=== PATIENT | female | born 1975 | race African-American/Black ===

== ENCOUNTER 2022-11-15 15:38 | Inpatient (IN) | payer BC, OTHER ==
--- OUTSIDE RECORDS SUMMARY | 2022-11-15 15:41 | XMS REPORT | Continuity of Care Document ---
:1975 Author Organization [facility] t Address [address] [facility] [address] [place] [address] Care Team Providers Name Role Phone None, None Primary Care Physician RADIOLOGY Attending Clinician Unavailable Radiology Attending Clinician Unavailable CROW GRIMES Attending Clinician Unavailable CROW GRIMES Attending Clinician Unavailable Tim Carvajal MD Attending Clinician LAB47 Attending Clinician Unavailable MIKA FIGUEROA Attending Clinician Unavailable COVID-PFIZER RANGEL BLANCO Attending Clinician Unavailable Doctor Unassigned, [place] Attending Clinician Unavailable SASKIA HALL Attending Clinician Unavailable [id number] Attending Clinician Unavailable DUYEN WILSON Attending Clinician Unavailable Lakesha Castillo Attending Clinician LAKESHA HERNANDEZ Attending Clinician Unavailable Saskia Hall PA-C Attending Clinician Nurse, Adc Pob Immunization Attending Clinician Unavailable Gopi Goddard DO Attending Clinician GOPI GODDARD Attending Clinician Unavailable DANIELLE GALICIA Attending Clinician Unavailable SAMUEL RICKETTS Admitting Clinician Unavailable SASKIA HALL Admitting Clinician Unavailable Payers Payer Name Policy Type Policy Number Effective Date Expiration Date S [facility] [id number] CHANDLER [id number] 2019 ESSENTIALS/BLUE 00:00:00 ESSENTIALS ACCESS HMO BLUE ESSENTIALS [id number] 2019 HMO 00:00:00 TRS BLUE 9 [id number] 2021 ESSENTIALS 00:00:00 CAPITATED PRIMARY Blue Cross Blue C1 [id number] [facility] Problems Condition Condition Condition Status Onset Resolution Last Treating Co mments Source Name Details Category Date Date Treatment Clinician Date Pelvic Pelvic Disease Active Univers pain pain - ity of 00:00: [place] 00 Medical Branch Hemorrhagi Hemorrhagi Disease Active U nivers c cystitis c cystitis 10-05 it y of 00:00: [place] 00 Medical Branch Neck Neck Disease Active Univers swelling swelling 10-05 ity of 00:00: [place] 00 Medical Branch Acute Acute Disease Active Univers vaginitis vaginitis 09-14 ity of 00:00: [place] 00 Medical Branch Yeast Yeast Disease Active Univers infection infection 09-14 ity of 00:00: [place] 00 Medical Branch Encounter Encounter Disease Active Uni vers to to 07-25 [place] of establish establish [place] [facility] [place] Anxiety Anxiety Disease Active Univers and and 07-25 [place] of depression [place] Need for Need for Disease Active Unive rs hepatitis hepatitis 07-25 ity of C C 00:00: [place] screening screening 00 [facility] valarie test test Branch 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 07-25 it y of 00:00: [place] 00 Medical Branch Rash and Rash and Disease Active Unive rs other other 07-25 ity of nonspecifi nonspecifi [place] skin c skin 00 Medical eruption eruption Branch No known No known Disease [place] active active Health problems problems Allergies, Adverse Reactions, Alerts Allergy Allergy Status Severity Reaction(s) Onset Inactive Treating Comm ents Source Name Type Date Date Clinician SULFA Drug Active Swelling 2020-03 Univers (SULFONA Class 0-05 ity of MIDE 00:00: [place] ANTIBIOT 00 Medical ICS) Branch Sulfa Propensi Active Swelling 2020-03 Karla Drugs ty to 0-05 Seybold adverse 00:00: - reaction 00 Externa s l Sulfamet Drug Active Hives 2009- Univers hoxazole Allergy 3-25 ity of -Trimeth 00:00: [place] oprim 00 Medical Branch MORPHINE DRUG Active High ITCHING 2009- Univers INGREDI 3-25 ity of 00:00: [place] 00 Medical Branch SULFAMET DRUG Active Med Hives 2009- Univers HOXAZOLE 3-25 ity of -TRIMETH 00:00: [place] OPRIM 00 Medical Branch Morphine Drug Active Itching 2009-0 Karla Allergy 3-25 Seybold 00:00: - 00 Externa l Sulfamet Propensi Active Hives 2009- Karla hoxazole ty to 3-25 Seybold W-Trimet adverse 00:00: - hoprim reaction 00 Externa s l Bactrim Drug Active Hives Karla Allergy 3-25 Seybold 00:00: - 00 Externa l Social History Social Habit Start Date Stop Date Quantity Comments Source Gender identity Universit y [facility] Sexual orientation Univer sity [facility] History of Tobacco [facility] - Use [facility] Exposure to 2022-04-10 2022-04-20 Not sure [facility] SARS-CoV-2 (event) 00:00:00 13:50:00 Tobacco use and 2022-04-20 2022-04-20 Smokeless [place] [facility] exposure 00:00:00 00:00:00 tobacco non-user Alcohol intake 2022-01-24 2022-01-24 Current Karla Sey bold - 00:00:00 00:00:00 non-drinker of External alcohol (finding) History of Social 2021-01-11 2021-01-11 Univers ity of function 00:00:00 00:00:00 [facility] Sex Ass[birth year] At [birth year] [place] [facility] 00:00:00 00:00:00 Smoking Status Start Date Stop Date Source Never smoked tobacco [facility] Medications Ordered Filled Start Stop Current Ordering Indication Dosage Frequency Signature Comments Components Source Medication Medication Date Date Medication? Clinician (SIG) Name Name warfarin 4 Yes TAKE 2 Unive rs mg tablet 1-31 TABLETS BY ity of 00:00: MOUTH ONCE [place] 00 DAILY Medical (PENDING Branch INR RESULTS) No known No No known UT medications 04-20 medication He alth 15:50: s 54 No known No No known [place] medications 04-20 medication He alth 15:50: s 54 Warfarin 2021-03- No 4mg Take 4 mg Naresh sey Sodium 03-26 by mouth 2 Seybol d (Coumadin) 16:55: 00:00 times - 4 MG oral 34 :00 daily Externa Tablet l Warfarin 2021-03 Yes 1 tablet Kelse y Sodium 1-01 daily on Seybold (COUMADIN) 16:20: Sun, , - 7.5 MG OR Sun, Sat [employer] [facility] Reception[facility] a TABS l Warfarin 2021-03 Yes 1 TABLET Kelse y Sodium 1- DAILY on Seybold (COUMADIN) 16:20: Sun, and - 10 MG OR Sun Externa TABS l Warfarin 2021-03 Yes [id number] 5mg Take 5 mg Karla (COUMADIN) 03-26 by mouth Seybo ld 5 MG oral 16:20: daily - Tablet 31 Takes on Externa and l only WARFARIN 2021-03 Yes [id number] 9mg Take 9 mg Karla SODIUM OR 03-26 by mouth Seybol d 16:20: On Sunday, - Sunday, Externa Sunday, l Sun and Sunday Warfarin 2021-03- No 8mg Take 2 Karla Sodium 03-26 11-16 tablets (8 Seybol d (Coumadin) 00:00: 05:59 mg total) - 4 MG oral 00 :00 by mouth [facility] a Tablet daily for l 14 days cephALEXin 2021- No [id number] 500mg Take 1 Univers (KEFLEX) 10-05 capsule by ity of 500 mg 00:00: 04:59 mouth in [place] capsule 00 :00 the Medical morning Branch and 1 capsule in the evening. Do all this for 7 days. cephALEXin 2021- No [id number] 500mg Take 1 Univers (KEFLEX) 10-05 capsule by ity of 500 mg 00:00: 04:59 mouth in [place] capsule 00 :00 the Medical morning Branch and 1 capsule in the evening. Do all this for 7 days. cephALEXin 2- No [id number] 500mg Take 1 Univers (KEFLEX) 7 07-21 capsule by ity of 500 mg 00:00: 04:59 mouth in [place] capsule 00 :00 the Medical morning Branch and 1 capsule in the evening. Do all this for 7 days. Phentermine 2021-0 Yes [id number] 1{capsu Take 1 Karla HCl 15 MG 6-20 le} capsule by Seyb old oral 00:00: mouth 2 - Capsule 00 times Externa daily l FLUoxetine 2021-0 Yes 20mg Take 20 mg U nivers 20 mg 4-17 by mouth ity of capsule 00:00: daily. [place] [facility] FLUoxetine 2021-0 Yes 20mg Take 20 mg U nivers 20 mg 4-17 by mouth ity of capsule 00:00: daily. [place] [facility] Branch FLUoxetine 2021-0 Yes 20mg Take 20 mg U nivers 20 mg 4-17 by mouth ity of capsule 00:00: daily. [place] [facility] FLUoxetine 2021-0 Yes 20mg Take 20 mg U nivers 20 mg 4-17 by mouth ity of capsule 00:00: daily. [place] [facility] Branch FLUoxetine 2021-0 Yes 20mg Take 20 mg U nivers 20 mg 4-17 by mouth ity of capsule 00:00: daily. [address] Branch FLUoxetine 2021-0 Yes 20mg Take 20 mg U nivers 20 mg 4-17 by mouth ity of capsule 00:00: daily. [address] FLUoxetine 2021-0 Yes 20mg Take 20 mg U nivers 20 mg 4-17 by mouth ity of capsule 00:00: daily. [address] Fluoxetine 2021-0 Yes [id number] 20mg Take 20 mg Karla HCl 20 MG 4-17 by mouth Seybol d oral 00:00: daily - Capsule 00 Externa l phentermine 2-0 Yes 15mg Take 15 mg Univers 15 mg 3-22 by mouth 2 ity of capsule 00:00: (two) [place] 00 times Medical daily. Branch phentermine 2022-0 Yes 15mg Take 15 mg Univers 15 mg 3-22 by mouth 2 ity of capsule 00:00: (two) [place] 00 times Medical daily. Branch phentermine 2022-0 Yes 15mg Take 15 mg Univers 15 mg 3-22 by mouth 2 ity of capsule 00:00: (two) [place] 00 times Medical daily. Branch phentermine 2022-0 Yes 15mg Take 15 mg Univers 15 mg 3-22 by mouth 2 ity of capsule 00:00: (two) [place] 00 times Medical daily. Branch phentermine 2022-0 Yes 15mg Take 15 mg Univers 15 mg 3-22 by mouth 2 ity of capsule 00:00: (two) [place] 00 times Medical daily. Branch phentermine 2022-0 Yes 15mg Take 15 mg Univers 15 mg 3-22 by mouth 2 ity of capsule 00:00: (two) [place] 00 times Medical daily. Branch phentermine 2022-0 Yes 15mg Take 15 mg Univers 15 mg 3-22 by mouth 2 ity of capsule 00:00: (two) [place] 00 times Medical daily. Branch warfarin 4 2020-0 Yes TAKE 1 Unive rs mg tablet 8-16 TABLET BY ity o f 00:00: MOUTH ONCE 00 DAILY Medical DIRECTED Branch warfarin 4 2020-0 Yes TAKE 1 Unive rs mg tablet 8-16 TABLET BY ity o f 00:00: MOUTH ONCE DAILY Medical DIRECTED Branch warfarin 4 2020-0 Yes TAKE 1 Unive rs mg tablet 8-16 TABLET BY ity o f 00:00: MOUTH ONCE 00 DAILY Medical DIRECTED Branch warfarin 4 2020-0 Yes TAKE 1 Unive rs mg tablet 8-16 TABLET BY ity o f 00:00: MOUTH ONCE DAILY Medical DIRECTED Branch warfarin 5 1-0 Yes 5mg Take 5 mg Un clarke mg tablet 8-10 by mouth. ity o f 00:00: Medical Branch warfarin 5 1-0 Yes 5mg Take 5 mg Un clarke mg tablet 8-10 by mouth. ity o f 00:00: Medical Branch warfarin 5 1-0 Yes 5mg Take 5 mg Un clarke mg tablet 8-10 by mouth. ity o f 00:00: Medical Branch warfarin 5 1-0 Yes 5mg Take 5 mg Un clarke mg tablet 8-10 by mouth. ity o f 00:00: Medical Branch warfarin 5 1-0 Yes 5mg Take 5 mg Un clarke mg tablet 8-10 by mouth. ity o f 00:00: [place] 00 Medical Branch warfarin 5 2021-0 Yes 5mg Take 5 mg Un clarke mg tablet 8-10 by mouth. ity o f 00:00: [place] 00 Medical Branch levoFLOXaci levoFLOXaci 2020-2020- No 1{table QD levoFLOXac n 750 MG n 750 MG 09-06 t} in 750 MG 00:00: 00:00 00 :00 Warfarin 2009- Yes 2 TABLET Kelse y Sodium 10 1-11 AT BEDTIME Seyb old MG OR TABS 00:00: EVERY DAY - 00 Externa l Coumadin Coumadin No Coumadin Immunizations Ordered Filled Immunization Date Status Comments [facility] e Immunization Name Name COVID-19 Bivalent 2022-01-24 Completed Karla Reyes - Booster vaccine 00:00:00 External PFIZER 12+ SARS-COV-2 COVID-19 2021-02-02 Completed Unive rsity of PFIZER VACCINE 00:00:00 [facility] SARS-COV-2 COVID-19 2021-02-02 Completed Unive rsity of PFIZER VACCINE 00:00:00 [facility] SARS-COV-2 COVID-19 2021-02-02 Completed Unive rsity of PFIZER VACCINE 00:00:00 [facility] SARS-COV-2 COVID-19 2021-02-02 Completed Unive rsity of PFIZER VACCINE 00:00:00 [facility] SARS-COV-2 COVID-19 2021-02-02 Completed Unive rsity of PFIZER VACCINE 00:00:00 [facility] SARS-COV-2 COVID-19 2021-02-02 Completed Unive rsity of PFIZER VACCINE 00:00:00 [facility] SARS-COV-2 COVID-19 2021-02-02 Completed Unive rsity of PFIZER VACCINE 00:00:00 [facility] SARS-COV-2 COVID-19 2020 Completed Unive rsity of PFIZER VACCINE 00:00:00 [facility] SARS-COV-2 COVID-19 2020 Completed Unive rsity of PFIZER VACCINE 00:00:00 [facility] SARS-COV-2 COVID-19 2020 Completed Unive rsity of PFIZER VACCINE 00:00:00 [facility] SARS-COV-2 COVID-19 2020 Completed Unive rsity of PFIZER VACCINE 00:00:00 [facility] SARS-COV-2 COVID-19 2020 Completed Unive rsity of PFIZER VACCINE 00:00:00 [facility] SARS-COV-2 COVID-19 2020 Completed Unive rsity of PFIZER VACCINE 00:00:00 [facility] SARS-COV-2 COVID-19 2020 Completed Unive rsity of PFIZER VACCINE 00:00:00 [facility] SARS-COV-2 COVID-19 2020-07-10 Completed Unive rsity of PFIZER VACCINE 00:00:00 [facility] SARS-COV-2 COVID-19 2020-07-10 Completed Unive rsity of PFIZER VACCINE 00:00:00 [facility] SARS-COV-2 COVID-19 2020-07-10 Completed Unive rsity of PFIZER VACCINE 00:00:00 [facility] SARS-COV-2 COVID-19 2020-07-10 Completed Unive rsity of PFIZER VACCINE 00:00:00 [facility] SARS-COV-2 COVID-19 2020-07-10 Completed Unive rsity of PFIZER VACCINE 00:00:00 [facility] SARS-COV-2 COVID-19 2020-07-10 Completed Unive rsity of PFIZER VACCINE 00:00:00 [facility] SARS-COV-2 COVID-19 2020-07-10 Completed Unive rsity of PFIZER VACCINE 00:00:00 [facility] Vital Signs Vital Name Observation Time Observation Value Comments Source Systolic blood 2022-04-20 21:23:00 118 mm[Hg] [facility] pressure Diastolic blood 2022-04-20 21:23:00 78 mm[Hg] [facility] pressure Heart rate 2022-04-20 21:23:00 65 /min [facility] Body temperature 2022-04-20 21:23:00 36.22 Suzanna [facility] Body height 2022-04-20 21:23:00 154.9 cm [facility] Body weight 2022-04-20 21:23:00 92.987 kg [facility] BMI 2022-04-20 21:23:00 38.73 kg/m2 [facility] Systolic blood 2022-01-24 21:15:00 110 mm[Hg] Karla Seybold - pressure External Diastolic blood 2022-01-24 21:15:00 66 mm[Hg] Alex reddy Seybold - pressure External Heart rate 2022-01-24 21:15:00 80 /min Karla Kay eybold - External Body temperature 2022-01-24 21:15:00 36.67 Suzanna Bere ey Seybold - External Respiratory rate 2022-01-24 21:15:00 18 /min Bere ey Seybold - External Body height 2022-01-24 21:15:00 155.4 cm Karla S eybold - External Systolic blood 2021-10-05 20:40:00 145 mm[Hg] Univer sity of pressure [facility] Diastolic blood 2021-10-05 20:40:00 91 mm[Hg] Unive rsity of pressure [facility] Heart rate 2021-10-05 20:40:00 78 /[facility] 2021-10-05 20:40:[address] [facility] Oxygen saturation in 2021-10-05 20:40:00 97 /min [facility] Arterial blood by [facility] Pulse oximetry Branch height 2020-09-06 14:40:00 64 [in_i] [facility] weight 2020-09-06 14:40:00 210 [lb_av] [facility] temperature 2020-09-06 14:40:00 97.8 [degF] [facility] bmi 2020-09-06 14:40:00 36.04 kg/m2 [facility] oximetry 2020-09-06 14:40:00 97 % [facility] blood pressure 2020-09-06 14:40:00 138 mm[Hg] [facility] - systolic [facility] blood pressure 2020-09-06 14:40:00 78 mm[Hg] [facility] - diastolic [facility] Procedures Procedure Date / Time Performing Clinician Source Performed PHYSICIAN ORDERS 2022-01-18 05:01:00 Doctor Unassigned, [facility] [place] [facility] INSURANCE CORRESPONDENCE 2021-10-24 05:01:00 Doctor Unassigned, [facility] [place] [facility] CBC (INCLUDES DIFF/PLT)-Q 2021-10-07 21:01:00 Lakesha Hernandez [facility] POCT URINALYSIS 2021-10-05 00:00:00 Lakesha Hernandez [place] [facility] Encounters Start End Encounter Admission Attending Care Care Encounter Source Date/Time Date/Time Type Type Clinicians Facility Department ID 2022-05-01 Outpatient [facility] [id number] [place] 12:18:59 [id number] [facility] 2022-04-20 Outpatient [facility] [id number] [place] 14:10:45 [id number] [facility] 2022-04-12 Outpatient [facility] [id number] [place] 10:29:23 [id number] [facility] 2022-04-11 Outpatient [facility] [id number] [place] 13:44:17 [id number] [facility] 2022-04-07 Outpatient [facility] [id number] [place] 09:05:49 [id number] [facility] 2021-04-20 Outpatient [facility] ST[facility] [id number] Common 13:14:23 [id number] [facility] 2022-10-20 2022-10-20 Outpatient R RADIOLOGY [facility] [id number] [facility] 14:35:44 23:59:00 ity of [facility] 2022-10-20 2022-10-20 Hospital Radiology [facility] [id number] [facility] 14:35:44 23:59:00 Encounter [place] [id number] ity [facility] [id number] [facility] [id number] [place] [address] Branch 2022-06-06 2022-06-06 Outpatient R CROW GRIMES [facility] B [id number] Univers 08:00:00 08:00:00 CROW GRIMES itbarry of [facility] 2022-05-09 2022-05-09 Telephone AGUS Grimes [place] [id number] Univers 00:00:00 00:00:00 Crow [place] [id number] it y of W[place]'S [id number] [place] [id number] [facility] 134 Branch 2022-04-20 2022-04-20 Office ADAMA Carvajal [id number] [place] 14:30:00 15:31:18 Visit Tim [place] [id number] [facility] [id number] 2022-04-13 2022-04-13 Outpatient MARCUS [facility] [id number] [place] 16:30:00 16:30:00 [facility] 2022-01-24 2022-01-24 Outpatient LAB47 KARLA PEREZ [id number] Karla 17:20:00 17:20:00 Seybol wilfredo 2022-01-24 2022-01-24 Outpatient KARLA FIGUEROA [id number] Karla 16:15:00 16:15:00 MIKA Seemilieol wilfredo 2022-01-24 2022-01-24 Outpatient COVID-PFIZE KARLA PEREZ [id number] Karla 15:50:00 15:50:00 R Shemar BLANCO [place] 2022-01-18 2022-01-18 Outpatient R CROW GRIMES [facility] B [id number] Univers 09:00:00 09:00:00 CROW GRIMES [facility] 2022-01-18 2022-01-18 Outpatient R CROW GRIMES [facility] B [id number] Univers 09:00:00 09:00:00 CORW GRIMES [facility] 2022-01-18 2022-01-18 Orders Doctor HERNÁNDEZ [id number] Univers 00:00:00 00:00:00 Only Unassigned, IRENE [id number] ity of [place] [facility] 4.2.7.2.686 Jerry as [id number] [facility] 009 Branch 2022-01-12 2022-01-12 Outpatient Mike HALL [facility] [id number] Univers 08:00:00 08:00:00 SASKIA [facility] 2022-01-12 2022-01-12 Outpatient R ISABEL [facility] [id number] Univers 08:00:00 08:00:00 SASKIA brown [facility] 2021-11-01 2021-11-01 Outpatient KARLA PEREZ [id number] Karla 16:30:00 16:30:00 Seybol d 2021-10-24 2021-10-24 Orders Doctor HERNÁNDEZ [id number] Univers 00:00:00 00:00:00 Only Unassigned, IRENE [id number] ity of [place] [facility] 4.2.7.2.686 Jerry as [id number] [place] [address] Branch 2021-10-13 2021-10-13 Outpatient TFF48-[id number] KARLA PEREZ [id number] Karla 10:05:00 10:05:00 Seybol wilfredo 2021-10-13 2021-10-13 Office RANGEL WILSON 1.2.840.114 [id number] Karla 09:00:00 09:00:00 Visit DUYEN [id number] Amy 1.2.7.2.686 [id number] 2021-10-12 2021-10-12 Telephone [facility] 1.2.840.11 [id number] Univers 00:00:00 00:00:00 Crow [place] [id number] it y of WOMEN'S 4.2.7.2.686 [facility] [id number] [facility] 134 Branch 2021-10-07 2021-10-07 Orders BETTY Hernandez [id number] Univers 00:00:00 00:00:00 Only Lakesha BONILLA [id number] it y of HOSPITAL 4.2.7.2.686 Jerry as [id number] [facility] 009 Branch 2021-10-05 2021-10-05 Outpatient Mike HERNANDEZ [facility] [id number] Univers 15:30:00 16:58:23 LAKESHA brown [facility] 2021-10-05 2021-10-05 Office DavidRUST [id number] [id number] Univers 15:30:00 16:58:23 Visit Lakesha HUANG [id number] it [facility] [id number] Jerry as NANCY?BLEA [id number] [address] OFFICE [facility] 2021-10-05 2021-10-05 [facility] [id number] Univers 15:30:00 16:58:23 LAKESHA brown [facility] 2021-09-16 2021-09-16 Tele[facility] [id number] Univers 00:00:00 00:00:00 Lakesha HUANG [id number] it y [facility] [id number] Jerry as NANCY?BLEA [id number] [address] OFFICE [facility] 2021-09-14 2021-09-14 Office MilagrosniiRUST [id number] Univers 08:30:00 09:17:00 Visit Lakesha HUANG [id number] it y [facility] [id number] Jerry as NANCY?BLEA [id number] [address] OFFICE [facility] 2021-09-14 2021-09-14 [facility] [id number] Univers 08:30:00 09:17:00 LAKESHA brown [facility] 2021-09-14 2021-09-14 [facility] [id number] Univers 08:30:00 08:30:00 LAKESHA brown [facility] 2021-09-12 2021-09-12 Telephone Sydney [facility] 1.2.840.11 [id number] Univers 00:00:00 00:00:00 Crow [place] [id number] it [place].2.[place] [id number] [address] 2021-08-29 2021-08-29 Orders Doctor HERNÁNDEZ 1.2.840.114 [id number] Univers 00:00:00 00:00:00 Only Unassigned, IRENE [id number] ity of [place] [facility] 4.2.7.2.686 Jerry as [id number] [address] 2021-08-26 2021-08-26 Outpatient R DAVID [facility] [id number] Univers 08:30:00 08:30:00 LAKESHA stephanie [facility] 2021-08-08 2021-08-08 Outpatient R CROW GRIMES [facility] B [id number] Univers 16:00:00 17:02:07 CROW GRIMES [facility] 2021-08-08 2021-08-08 [facility] 1.2.840.114 [id number] [facility] 16:00:00 17:02:07 Visit Crow [place] [id number] it y [place] 4.2.7.2.686 [place] [id number] [address] 2021-08-06 2021-08-06 BETTY Michele 1.2.840.114 [id number] Univers 00:00:00 00:00:00 Only Lakesha BONILLA [id number] it y of HOSPITAL 4.2.7.2.686 Jerry as [id number] [address] 2021 2021 Telephone [facility] 1.2.840.11 [id number] Univers 00:00:00 00:00:00 Crow [place] [id number] it [place].2.[place] [id number] [address] 2021-08-01 2021-08-01 Case [facility] 1.2.840.114 [id number] Univers 00:00:00 00:00:00 Management Crow [place] [id number] ity of [place].2.[place] [id number] [address] 2021-07-29 2021-07-29 Harinder HERNÁNDEZ [id number] Univers 00:00:00 00:00:00 Only Unassigned, IRENE [id number] ity of [place] [facility] 4.2.7.2.686 Jerry as [id number] [facility] 009 Branch 2021-07-26 2021-07-26 Outpatient R SYDNEY CROW [facility] B [id number] Univers 16:00:00 17:03:38 CROW GRIMES [facility] 2021-07-26 2021-07-26 [facility] 1.2.840.114 [id number] Univers 16:00:00 17:03:38 Visit Crow [place] [id number] it y of [facility] 4.2.7.2.686 [facility] [id number] [facility] 134 Branch 2021-07-26 2021-07-26 Outpatient R CROW GRIMES [facility] B [id number] Univers 16:00:00 16:00:00 CROW GRIMES [facility] 2021-07-25 2021-07-25 Outpatient R DAVID [facility] [id number] Univers 15:00:00 15:45:40 LAKESHA [facility] 2021-07-25 2021-07-25 Office DavidRUST 1.2.840.114 [id number] Univers 15:00:00 15:45:40 Visit Lakesha HUANG [id number] it y of [place] 4.2.7.2.686 Jerry as NANCY?BLEA [id number] [address] MEDICAL OFFICE BUILDING 2021-06-10 2021-06-10 [place] Health [id number] Univers 12:43:02 23:59:00 Encounter Saskia CROWE [id number] [id number] [id number] [facility] [address] 2021-06-10 2021-06-10 [facility] [id number] Univers 12:43:02 23:59:00 SASKIA brown [facility] 2021-02-02 2021-02-02 Imm/Inj Nurse, Adc Pob Immunization [facility] [id number] Univers 16:02:09 16:02:17 Visit NitzaGopi AMRITA 350.1.13 .10 [id number] [phone] Nd dical [facility] [address] [facility] 2021-02-02 2021-02-02 Outpatient R NITZA [facility] [id number] Univers 15:50:00 15:50:00 GOPI brown [facility] 2021-01-11 2021-01-11 Outpatient Mike HALL [facility] [id number] Univers 09:30:00 10:12:02 SASKIA brown [facility] 2021-01-11 2021-01-11 Office Isabel [facility] [id number] Univers 09:28:01 10:12:02 Visit Saskia [place] [id number] [id number] [phone] Nd dical [address] 2020-12-28 2020-12-28 Office Isabel [facility] [id number] Univers 15:14:10 15:53:09 Visit Saskia [place] [id number] i [id number] [phone] Nd dical nal [address] [place] [address] 2020-12-28 2020-12-28 Outpatient R ISABEL [facility] [id number] Univers 15:00:00 15:00:00 SASKIA brown [facility] 2020-09-06 2020-09-06 [facility] [id number] Co mmon 00:00:00 00:00:00 VISIT [facility] PT LEVEL 3 - [facility] 2020 2020 Outpatient R GRAYSON [facility] [id number] Univers 08:20:00 16:04:44 DANIELLE [facility] 2020-07-10 2020-07-10 Outpatient Mike GALICIA, [facility] [id number] [facility] 08:00:00 08:10:11 [facility] Results Test Description Test Time Test Comments Results Result Comments Source CBC (INCLUDES DIFF/PLT)-Q 2021-10-08 03:00:00 Test Item Value Reference Range Interpretation Comme nts WHITE BLOOD CELL COUNT-Q See_Comment [A utomated message] The (test code = 6690-2) system which generated this result tra nsmitted reference range : 3.8 - 10.8 Thousand/u L. The reference range was not used to interpr et this result as denny l/abnormal. RED BLOOD CELL COUNT-Q See_Comment [Aut omated message] The (test code = 789-8) system w [facility] generated this result tra nsmitted reference range : 3.80 - 5.10 Million/uL . The reference range was not used to interpr et this result as denny l/abnormal. HEMOGLOBIN-Q (test code 11.9 g/dL 11.7-15.5 = 718-7) HEMATOCRIT-Q (test code 36.1 % 35-45 = 4544-3) MCV-Q (test code = 83.6 fL 80-100 787-2) MCH-Q (test code = 27.5 pg 27-33 785-6) MCHC-Q (test code = 33 g/dL 32-36 786-4) RDW-Q (test code = 15.7 % 11-15 H 788-0) PLATELET COUNT-Q (test See_Comment [Aut omated message] The code = 777-3) system which g enerated this result tra nsmitted reference range : 140 - 400 Thousand/uL. Th e reference range was not u sed to interpret this result as normal/abnormal . MPV-Q (test code = 9.2 fL 7.5-12.5 776-5) ABSOLUTE NEUTROPHILS-Q See_Comment [Aut omated message] The (test code = 751-8) system w [facility] generated this result tra nsmitted reference range : 1500 - 7800 cells/uL. The reference range was not used to interpr et this result as denny l/abnormal. ABSOLUTE LYMPHOCYTES-Q See_Comment [Aut omated message] The (test code = 731-0) system w Marco Vasco generated this result tra nsmitted reference range : 850 - 3900 cells/uL. The reference range was not used to interpr et this result as denny l/abnormal. ABSOLUTE MONOCYTES-Q See_Comment [Autom ated message] The (test code = 742-7) system w Marco Vasco generated this result tra nsmitted reference range : 200 - 950 cells/uL. The r eference range was not u sed to interpret this result as normal/abnormal . ABSOLUTE EOSINOPHILS-Q See_Comment [Aut omated message] The (test code = 711-2) system w Marco Vasco generated this result tra nsmitted reference range : 15 - 500 cells/uL. The r eference range was not u sed to interpret this result as normal/abnormal . ABSOLUTE BASOPHILS-Q See_Comment [Autom ated message] The (test code = 704-7) system w Marco Vasco generated this result tra nsmitted reference range : 0 - 200 cells/uL. The r eference range was not u sed to interpret this result as normal/abnormal . NEUTROPHILS-Q (test code 47.8 % = 770-8) LYMPHOCYTES-Q (test code 35.1 % = 736-9) MONOCYTES-Q (test code = 10.8 % 5905-5) EOSINOPHILS-Q (test code 4.9 % = 713-8) BASOPHILS-Q (test code = 1.4 % 706-2) GERMAN (test code = GERMAN) PERFORMED BY [email or web address] [place]; [address] [place] [id number]; YAZAN SANTIAGO MD Lab Interpretation (test Abnormal code = 34880-7) [facility] URINALYSIS W SPECIFIC [id number] 21:31:00 Test Item Value Reference Range Interpretation Comments POCT U SP GRAV (test 1.020 mg/dl See_Comment H [Autom ated code = 6605) message] The system which generated this result transmit leny reference range : <=1.025. The reference range was not used to interpret this result as normal/abnormal . POCT PH U (test code = 5 mg/dl 5-8 3254) POCT U LEUK EST (test + Negative - code = 3263) Negative POCT U NIT (test code neg Negative - = 3262) Negative POCT U PROT (test code neg Negative - = 3259) Negative POCT U GLU (test code neg Negative - = 3256) Negative POCT U KETONE (test neg Negative - code = 3258) Negative POCT U UROBILI (test neg 0.2-1 code = 3260) POCT U BILI (test code neg Negative - = 3261) Negative POCT U BLD (test code trace Negative - = 3257) Negative POCT U COLOR (test light yellow code = 3266) POCT U APPEAR (test hazy code = 3267) Lab Interpretation Abnormal (test code = 78968-9) [facility]
[2022-11-15] MEDS ORDERED: NA CHLORIDE 0.9% 2,000 ML ONE (16:50)
[2022-11-15 18:19] LABS: Absolute Lymphocytes (CBC) 2.3 K/uL (0.7-4.9); Lymphocytes % 29.9 % (15.3-44.8); MCV 78.9 fL (80-100); MPV 6.8 fL (7.6-11.3); Platelets 631 thou/uL (152-406); RBC Red Blood Cell Count 5.84 M/uL (3.86-4.86)
[2022-11-15 18:21] LABS: Protime INR 2.65
[2022-11-15 18:36] LABS: Albumin 4.1 g/dL (3.4-5.0); Bilirubin Total 0.7 mg/dL (0.2-1.0); Potassium 4.1 mEq/L (3.5-5.1); Protein, Total 9.1 g/dL (6.4-8.2)
[2022-11-15] MEDS ORDERED: FENTANYL CITR 100 MCG/2 ML ONE (18:58)
[2022-11-15] MEDS ORDERED: ONDANSETRON 4 MG/2 ML VIAL ONE (18:58)
--- NOTE | 2022-11-15 19:58 | RAD REPORT ---
EXAM DESCRIPTION: CT - Abdomen Pelvis Wo Contrast - 11/15/2022 7:38 pm CLINICAL HISTORY: Abdominal pain. ABD PAIN COMPARISON: Abdomen Pelvis W/Wo Contrast dated 08/29/2016 TECHNIQUE: CT imaging of the abdomen and pelvis was performed without contrast. Solid organ, bowel a nd vascular assessment is limited due to lack of IV and oral contrast. All CT scans are performed using dose optimization technique as appropriate and may include automated exposure control or mA/KV adjustment according to patient size. FINDINGS: The lower lung campbell are clear.Vena cava filter present. The liver, spleen, pancreas, adrenal glands and kidneys are within normal limits for a limited non-co ntrast examination. No bowel obstruction, free air, free fluid or abscess. Postsurgical changes involve the colon. Wall t hickening is present along the colon in the right flank with the numerous adjacent prominent lymph no tye. Nonvisualized appendix. Moderate L5-S1 degenerative changes. IMPRESSION: The colon in the right flank demonstrates wall thickening and surrounding lymph nodes. T his could indicate the nonspecific colitis. No pneumatosis coli seen. A limited non-contrast examination was performed as detailed.
--- NOTE | 2022-11-15 20:16 | EDPHYS ---
Physician Documentation [facility] Name: Nurys Vaughn Age: 47 yrs Sex: Female : 1975 Arrival Date: 11/15/2022 Time: 15:38 Bed 18 Private MD: KEV Physician Marquise Osman HPI: 11/15 16:25 This 47 yrs old Black Female presents to ER via Ambulatory with complaints of Doesn't sb4 Feel Right. 16:26 Onset: The symptoms/episode began/occurred 1 week(s) ago. Associated signs and sb4 symptoms: Pertinent positives: abdominal pain, diarrhea, patient is unable to take anything by mouth Pertinent negatives: chest pain, fever, shortness of breath. Modifying factors: The patient symptoms are alleviated by nothing, the patient symptoms are aggravated by drinking, eating food. The patient has experienced similar episodes in the past, multiple times. The patient has not recently seen a physician. patient with history of UC s/p colectomy and ileoanal anastomosis 20 years ago presents with complaints of abdominal pain, weakness. states she gets flare ups like these and usually flagyl resolves it but it has not this time and she feels incredibly dehydrated. Historical: - Allergies: 15:52 Morphine; iw 15:52 Sulfa (Sulfonamide Antibiotics); iw - Immunization history:: Client reports receiving the 2nd dose of the Covid vaccine. - Social history:: Smoking status: Patient denies any tobacco usage or history of. ROS: 16:30 Constitutional: Negative for fever, chills, and weight loss. sb4 16:30 Abdomen/GI: Positive for abdominal pain, nausea, diarrhea. 16:30 Neuro: Positive for weakness. 16:30 All other systems are negative. Exam: 17:09 Head/Face: Normocephalic, atraumatic. Cardiovascular: Regular rate and rhythm with a sb4 normal S1 and S2. Respiratory: Lungs have equal breath sounds bilaterally, clear to auscultation and percussion. No rales, rhonchi or wheezes noted. No increased work of breathing, no retractions or nasal flaring. Abdomen/GI: Soft, non-tender, no distension. Skin: Warm, dry with normal turgor. Normal color with no rashes, no lesions, and no evidence of cellulitis. MS/ Extremity: Pulses equal, no cyanosis. Neurovascular intact. Full, normal range of motion. 17:09 Constitutional: The patient appears awake, lethargic, uncomfortable. 17:09 ENT: Mouth: Oral mucosa: dry. 20:17 ECG was reviewed by the Attending Physician. [facility] Vital Signs: 15:46 BP 85 / 57 RA; Pulse 116; Resp 18; Pulse Ox 98% on R/A; Weight 79.38 kg; Height 5 ft. 1 iw in. ; Pain 10/10; 15:59 BP 106 / 85 LA; Pulse 118; Resp 20; Pulse Ox 96% ; iw 17:00 BP 101 / 78; Pulse 113; Resp 18; Pulse Ox 95% on R/A; ph 18:00 BP 102 / 68; Pulse 112; Resp 20; Pulse Ox 96% on R/A; ph 19:45 BP 108 / 78; Pulse 113; Resp 18; Pulse Ox 97% on R/A; cm10 20:30 BP 109 / 77; Pulse 101; Resp 18; Pulse Ox 100% on R/A; cm10 21:00 Pulse 95; cm10 15:46 Body Mass Index 33.07 (79.38 kg, 154.94 cm) iw 15:46 Pain Scale: Adult iw MDM: 15:54 Patient medically screened. robi 17:10 Differential diagnosis: gastroenteritis, colitis, bowel obstruction, dehydration, bowel sb4 perforation, anastomosis complication, UC flare. 18:57 ED course: additional medical history- protein S deficiency and is on Coumadin, has INR sb4 checked every 2 weeks by physician in [place]. GI physician is at [facility] in the medical center. I discussed her lab findings with her- hyponatremia, acute kidney injury, elevated lactic acid, tachycardia, borderline hypotension- and she needs admission to the hospital. She is extremely hesitant despite lengthy discussion. Initially refused CT but now has agreed. She has agreed to admission for 1-2 days max. I gave her the option to be transferred to her medical team and she refused. She is still very lethargic, makes minimal eye contact, seems to be withholding information. 19:05 Data reviewed: vital signs, nurses notes, lab test result(s), EKG, I have discussed the sb4 patient's presentation/case with the attending Emergency Department Physician;. Transition of care: After a detail discussion of the patient's case, care is transferred to Marquise Osman MD. 20:08 Differential diagnosis: Nonspecific abd pain, gastritis, pancreatitis, viral robi gastroenteritis, gastroenteritis, appendicitis, bowel obstruction, diverticulitis, gastritis, gastroesophageal reflux disease, GI Bleed, Hepatitis, Mesenteric ischemia or infarction, non-specific abd pain, pancreatitis, Peptic Ulcer Disease, Peritonitis, urinary tract infection. Consideration of Admission/Observation Patient was admitted/placed on observation. Escalation of care including admission/observation considered. I considered the following discharge prescriptions or medication management in the emergency department Medications were administered in the Emergency Department. See MAR. Test considered but Not performed: Ultrasound NO ABD USG. ED course: ULCERATIVE COLITIS. 11/15 16:08 Order name: Blood Culture Adult (2) [facility] 11/15 16:08 Order name: CBC with Diff; Complete Time: 18:22 [facility] 11/15 16:08 Order name: CMP; Complete Time: 18:37 [facility] 11/15 16:08 Order name: Lactate w/ 2H reflex if indic.; Complete Time: 18:55 [facility] 11/15 16:08 Order name: Protime (+inr); Complete Time: 18:22 [facility] 11/15 16:08 Order name: Ptt, Activated; Complete Time: 18:22 [facility] 11/15 16:08 Order name: Urinalysis w/ reflexes; Complete Time: 08:08 [facility] 11/15 16:08 Order name: Lipase; Complete Time: 18:37 [facility] 11/15 16:08 Order name: Procalcitonin; Complete Time: 20:03 [facility] 11/15 19:08 Order name: Osmolality, Serum; Complete Time: 09:27 [facility] 11/15 19:08 Order name: Urine Osmolality; Complete Time: 08:08 [facility] 11/15 19:08 Order name: Urine Sodium Random; Complete Time: 08:08 [facility] 11/15 19:08 Order name: Urine Creatinine; Complete Time: 08:08 [facility] 11/15 19:08 Order name: Urine Potassium Random; Complete Time: 08:08 [facility] 11/15 21:48 Order name: Basic Metabolic Panel [facility] 11/15 21:48 Order name: Basic Metabolic Panel; Complete Time: 08:08 EDIL 11/15 21:48 Order name: Basic Metabolic Panel [facility] 11/15 21:48 Order name: Basic Metabolic Panel [facility] 11/15 21:48 Order name: CBC with Automated Diff EDMS 11/15 21:48 Order name: CBC with Automated Diff; Complete Time: 09:27 EDMS 11/15 21:48 Order name: CBC with Automated Diff EDMS 11/15 21:48 Order name: CBC with Automated Diff EDMS 11/15 21:48 Order name: Magnesium EDMS 11/15 21:48 Order name: Magnesium; Complete Time: 08:08 EDMS 11/15 21:48 Order name: Urinalysis w/ reflexes EDMS 11/15 21:49 Order name: Magnesium EDMS 11/15 21:49 Order name: Magnesium EDMS 11/15 22:43 Order name: Lactate Sepsis 2 HR Follow-up; Complete Time: 08:08 EDMS 11/15 18:38 Order name: CT Abd/Pelvis - Without Contrast; Complete Time: 20:03 sb4 11/15 16:08 Order name: EKG; Complete Time: 16:09 sb4 11/15 21:48 Order name: NPO EDMS 11/15 16:08 Order name: Accucheck; Complete Time: 16:20 sb4 11/15 16:08 Order name: Cardiac monitoring; Complete Time: 16:14 sb4 11/15 16:08 Order name: EKG - Nurse/Tech; Complete Time: 16:14 sb4 11/15 16:08 Order name: IV Saline Lock - Large Bore; Complete Time: 16:20 sb4 11/15 16:08 Order name: Labs collected and sent; Complete Time: 16:20 sb4 11/15 16:08 Order name: O2 Per Protocol; Complete Time: 16:20 sb4 11/15 16:08 Order name: O2 Sat Monitoring; Complete Time: 16:20 sb4 11/15 16:08 Order name: Vital Signs; Complete Time: 16:20 sb4 11/15 20:02 Order name: Misc. Order: 3 LITER TOTAL NS; Complete Time: 20:24 robi EC:16 Rate is 115 beats/min. Rhythm is regular, Sinus tachycardia. QRS [place] is Normal. WI sb4 interval is normal at 164 msec. QRS interval is normal at 70 msec. QT interval is normal at 320 msec. No Q waves. No ST changes noted. Clinical impression: Normal ECG. Interpreted by me. Reviewed by me. 20:17 Rate is 115 beats/min. Rhythm is regular. QRS [place] is Normal. WI interval is normal. robi QRS interval is normal. QT interval is normal. No Q waves. T waves are Normal. No ST changes noted. Clinical impression: Sinus tachycardia and No evidence of ischemia. Interpreted by me. Reviewed by me. Administered Medications: 17:50 Drug: NS 0.9% IV (30 ml/kg) 30 ml/kg Route: IV; Rate: bolus; Site: right upper arm; nj1 21:59 Follow up: Response: No adverse reaction; IV Status: Completed infusion; IV Intake: cm10 3000ml 18:45 Drug: fentaNYL (PF) IVP 25 mcg Route: IVP; Site: right wrist; ph 19:53 Follow up: Response: No adverse reaction cm10 18:45 Drug: Ondansetron IVP 4 mg Route: IVP; Site: right wrist; ph 19:53 Follow up: Response: No adverse reaction cm10 20:28 Not Given (Duplicate Order): metroNIDAZOLE PO 250 mg PO once robi 20:42 Drug: Ciprofloxacin IVPB 200 mg Volume: 100 ml; Route: IVPB; Infused Over: 60 mins; cm10 Site: right wrist; 21:58 Follow up: Response: No adverse reaction; IV Status: Completed infusion cm10 20:42 Drug: Famotidine IVP 20 mg Route: IVP; Site: right wrist; cm10 21:29 Follow up: Response: No adverse reaction cm10 20:42 Drug: MethylPrednisoLONE IVP 60 mg Route: IVP; Site: right wrist; cm10 21:29 Follow up: Response: No adverse reaction cm10 21:29 Drug: Ativan IVP 1 mg Route: IVP; Site: right wrist; cm10 21:59 Follow up: Response: No adverse reaction cm10 21:58 Drug: metroNIDAZOLE IVPB 500 mg Volume: 100 ml; Route: IVPB; Rate: 200 ml/hr; Infused cm10 Over: 30 mins; Site: right wrist; 23:23 Follow up: Response: No adverse reaction; IV Status: Completed infusion cm10 Disposition: 20:10 Co-signature as Attending Physician, Marquise Osman MD. robi Disposition Summary: 11/15/22 20:16 Hospitalization Ordered Hospitalization Status: Inpatient Admission robi Provider: Lito Richards cha Location: Telemetry/MedSurg (Inpatient) robi Condition: Fair robi Problem: new robi Symptoms: have improved robi Bed/Room Type: Standard [facility] Room Assignment: 415(11/15/22 23:14) eb1 Diagnosis - Nausea with vomiting, unspecified robi - Dehydration robi - Acute kidney failure, unspecified robi - Hypo-osmolality and hyponatremia robi - Other ulcerative colitis with unspecified complications robi Forms: - Medication Reconciliation Form robi - SBAR form robi - Leadership Thank You Letter [facility] Signatures: Dispatcher [employer] Marquise Steen MD MD cha Williams, Irene RN TIM Nicole Morales RN RN Daphnie Boyer RN RN eb1 Sandra Sinha PA-C PASasha sb4 Coby Rosenthal RN RN nj1 Irene Kamara RN RN cm10 Corrections: (The following items were deleted from the chart) 19:02 18:57 ED course: additional medical history- protein S deficiency and is on Coumadin, sb4 has INR checked every 2 weeks by physician in [place]. GI physician is at [facility] in the [facility] center. I discussed her lab findings with her- hyponatremia, acute kidney injury, elevated lactic acid- and she needs admission to the hospital. She is extremely hesitant despite lengthy discussion. Initially refused CT but now has agreed. She has agreed to admission for 1-2 days max. I gave her the option to be transferred to her medical team and she refused. She is still very lethargic, makes minimal eye contact, seems to be withholding information. sb4 22:27 21:48 Lactate w/ 2H reflex if indic. ordered. EDIL EDMS 23:14 20:16 robi eb1
--- NOTE | 2022-11-15 20:16 | ER ---
Nurse's Notes [facility] Name: Nurys Vaughn Age: 47 yrs Sex: Female : 1975 Arrival Date: 11/15/2022 Time: 15:38 Bed 18 Private MD: Diagnosis: Nausea with vomiting, unspecified;Dehydration;Acute kidney failure, unspecified;Hypo-osmolality and hyponatremia;Other ulcerative colitis with unspecified complications Presentation: 11/15 15:46 Chief complaint: Patient states: "I think im dehydrated" . I think my potassium is low, iw im cramping all over. Started feeling bad, cannot swallow my own spit. Have not been able to eat or drink anything. States she has been taking flagyl that normally makes her feel better but it is not this time. Had large colon removed in 2003. Coronavirus screen: Vaccine status: Patient reports receiving the 2nd dose of the covid vaccine. Ebola Screen: Patient denies travel to an Ebola-affected area in the 21 days before illness onset. Initial Sepsis Screen: Does the patient meet any 2 criteria? HR > 90 bpm. No. Patient's initial sepsis screen is negative. Does the patient have a suspected source of infection? No. Patient's initial sepsis screen is negative. Risk Assessment: Do you want to hurt yourself or someone else? Patient reports no desire to harm self or others. Onset of symptoms was November 08, 2022. 15:46 Method Of Arrival: Ambulatory iw 15:46 Acuity: RD 3 iw Historical: - Allergies: 15:52 Morphine; iw 15:52 Sulfa (Sulfonamide Antibiotics); iw - Immunization history:: Client reports receiving the 2nd dose of the Covid vaccine. - Social history:: Smoking status: Patient denies any tobacco usage or history of. Screenin:21 [facility] ED Fall Risk Assessment (Adult) History of falling in the last 3 months, ph including since admission No falls in past 3 months (0 pts) Confusion or Disorientation No (0 pts) Intoxicated or Sedated No (0 pts) Impaired Gait No (0 pts) Mobility Assist Device Used No (0 pt) Altered Elimination No (0 pt) Score/Fall Risk Level 0 - 2 = Low Risk Oriented to surroundings, Maintained a safe environment, Hourly rounding (assess needs \\T\\ fall precautionary measures) done. Abuse screen: Denies threats or abuse. Denies injuries from another. Nutritional screening: No deficits noted. Tuberculosis screening: No symptoms or risk factors identified. Assessment: 16:30 General: Appears in no apparent distress. uncomfortable, Behavior is cooperative, ph appropriate for age. Pain: Complains of pain in "all over". Neuro: Level of Consciousness is awake, alert, obeys commands, Oriented to person, place, time, situation. Cardiovascular: Capillary refill < 3 seconds in bilateral fingers Patient's skin is warm and dry. Respiratory: Airway is patent Respiratory effort is even, unlabored, Respiratory pattern is regular, symmetrical. GI: Reports intolerance of fluids, vomiting. Derm: Skin is pink, warm \\T\\ dry. Musculoskeletal: Circulation, motion, and sensation intact. Range of motion: intact in all extremities. 19:53 Reassessment: Patient is alert, oriented x 3, equal unlabored respirations, skin cm10 warm/dry/pink. Assumed care of patient at 1900. Pt states that she is feeling better. Pt noted to be spitting in vomit bag, no active vomiting noted. Updated pt on plan of care. No needs identified. Call light in reach. 21:30 Reassessment: Patient appears in no apparent distress at this time. No changes from cm10 previously documented assessment. Patient and/or family updated on plan of care and expected duration. Pain level reassessed. Patient is alert, oriented x 3, equal unlabored respirations, skin warm/dry/pink. 22:50 Reassessment: Pt complaining of nausea, provider Olivia made aware and verbal orders cm10 for Zofran 4mg IVP obtainted. 23:15 Reassessment: Pt continues to report nausea, provider made aware. Verbal order for cm10 Zofran 4mg IVP obtained. Vital Signs: 15:46 BP 85 / 57 RA; Pulse 116; Resp 18; Pulse Ox 98% on R/A; Weight 79.38 kg; Height 5 ft. 1 iw in. ; Pain 10/10; 15:59 BP 106 / 85 LA; Pulse 118; Resp 20; Pulse Ox 96% ; iw 17:00 BP 101 / 78; Pulse 113; Resp 18; Pulse Ox 95% on R/A; ph 18:00 BP 102 / 68; Pulse 112; Resp 20; Pulse Ox 96% on R/A; ph 19:45 BP 108 / 78; Pulse 113; Resp 18; Pulse Ox 97% on R/A; cm10 20:30 BP 109 / 77; Pulse 101; Resp 18; Pulse Ox 100% on R/A; cm10 21:00 Pulse 95; cm10 15:46 Body Mass Index 33.07 (79.38 kg, 154.94 cm) iw 15:46 Pain Scale: Adult iw ED Course: 15:40 Patient arrived in ED. im 15:41 Sandra Sinha PA-C is PHCP. sb4 15:41 Marquise Osman MD is Attending Physician. sb4 15:52 Triage completed. iw 15:53 Arm band placed on left wrist. iw 16:20 Nicole Morales, RN is Primary Nurse. ph 16:21 Patient has correct armband on for positive identification. Bed in low position. Call ph light in reach. Side rails up X 1. surveillance monitor on. Pulse ox on. NIBP on. 17:24 Missed attempt(s): 20 gauge Bleeding controlled, band aid applied, catheter tip intact. sm8 17:30 Missed attempt(s): 22 gauge in right antecubital area. Bleeding controlled, band aid iw applied, catheter tip intact. 17:50 Inserted saline lock: 20 gauge in right upper arm, using aseptic technique. ,using nj1 aseptic technique. Ultrasound guided. Catheter tip well visualized within vasculature during placement. Blood collected. 19:08 No provider procedures requiring assistance completed. ph 19:[address] cm10 19:40 CT Abd/Pelvis - Without Contrast In Process Unspecified. EDMS 20:10 Lito Richards is Hospitalizing Provider. robi 20:24 Inserted saline lock: 20 gauge in left forearm, using aseptic technique. cm10 21:35 Primary Nurse role handed off by Nicole Morales, RN wm 21:58 Irene Kamara, TIM is Primary Nurse. cm10 23:23 Patient admitted, IV remains in place. cm10 23:24 Provided Education on: N/A. cm10 Administered Medications: 17:50 Drug: NS 0.9% IV (30 ml/kg) 30 ml/kg Route: IV; Rate: bolus; Site: right upper arm; nj1 21:59 Follow up: Response: No adverse reaction; IV Status: Completed infusion; IV Intake: cm10 3000ml 18:45 Drug: fentaNYL (PF) IVP 25 mcg Route: IVP; Site: right wrist; ph 19:53 Follow up: Response: No adverse reaction cm10 18:45 Drug: Ondansetron IVP 4 mg Route: IVP; Site: right wrist; ph 19:53 Follow up: Response: No adverse reaction cm10 20:28 Not Given (Duplicate Order): metroNIDAZOLE PO 250 mg PO once robi 20:42 Drug: Ciprofloxacin IVPB 200 mg Volume: 100 ml; Route: IVPB; Infused Over: 60 mins; cm10 Site: right wrist; 21:58 Follow up: Response: No adverse reaction; IV Status: Completed infusion cm10 20:42 Drug: Famotidine IVP 20 mg Route: IVP; Site: right wrist; cm10 21:29 Follow up: Response: No adverse reaction cm10 20:42 Drug: MethylPrednisoLONE IVP 60 mg Route: IVP; Site: right wrist; cm10 21:29 Follow up: Response: No adverse reaction cm10 21:29 Drug: Ativan IVP 1 mg Route: IVP; Site: right wrist; cm10 21:59 Follow up: Response: No adverse reaction cm10 21:58 Drug: metroNIDAZOLE IVPB 500 mg Volume: 100 ml; Route: IVPB; Rate: 200 ml/hr; Infused cm10 Over: 30 mins; Site: right wrist; 23:23 Follow up: Response: No adverse reaction; IV Status: Completed infusion cm10 Medication: 16:21 VIS not applicable for this client. ph Intake: 21:59 IV: 3000ml; Total: 3000ml. cm10 Outcome: 20:16 Decision to Hospitalize by Provider. [facility] 23:23 Admitted to Med/surg accompanied by tech, via wheelchair, room 415, Report called to cmFaheem Washington RN 23:23 Condition: good 23:23 Instructed on the need for admit. 11/16 00:12 Patient left the ED. cm10 Signatures: Dispatcher [employer] EDMarquise Garcia MD MD cha Williams, Irene, RN RN iw Hall, Patricia, RN RN ph Marsh, Wendy wm Brown, Sophia, PA-C PA-Emeterio sb4 Coby Rosenthal RN RN nj1 Carolina Myers Clarissa, RN RN cm10 Mills, Scarlett 8 Corrections: (The following items were deleted from the chart) 11/15 16:00 15:46 BP 85 / 57; Pulse 116bpm; Resp 18bpm; Pulse Ox 98% RA; 79.38 kg; Height 5 ft. 1 iw in.; BMI: 33.0; Pain 10, Adult; iw
[2022-11-15] MEDS ORDERED: METRONIDAZOLE 500mg IVPB 500 MG/100 ML BAG IV ONE (20:40)
[2022-11-15] MEDS ORDERED: NA CHLORIDE 0.9% 1,000 ML ONE (20:40)
--- NOTE | 2022-11-15 21:34 | P.HP ---
Certification for Inpatient Patient admitted to: Inpatient With expected LOS: <2 Midnights Patient will require the following post-hospital care: None Practitioner: I am a practitioner with admitting privileges, knowledge of patient current condition, hospital course, and medical plan of care. Services: Services provided to patient in accordance with Admission requirements found in Title 42 Section 412.3 of the Code of Federal Regulations Patient History Date of Service: 11/16/22 Reason for admission: Dehydration History of Present Illness: 47-year-old -[place] Citizen female with a past medical history of ulcerative colitis, pulmonary embolus on warfarin presents to the emergency room with dehydration. 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 She reports a prior history of ulcerative colitis with colon resection with current J-pouch, she reports that she normally has 6-7 stools per day as baseline that are nonbloody. She reports mild nausea, difficulty tolerating p.o. intake. Worse over the last 2 days. Laboratory evaluation lactic two-point 3 repeat 1.0, WBCs normal at 7.8, no left shift, acute kidney injury BUN 37 creatinine 3.22, UA leukoesterase greater than 500, CT of the abdomen pelvis IMPRESSION: The colon in the right flank demonstrates wall thickening and surrounding lymph nodes. This could indicate the nonspecific colitis. No pneumatosis coli seen. Plan to admit for dehydration, acute kidney injury, acute cystitis, colitis Allergies morphine Allergy (Verified 12/31/12 07:32) Itching Sulfa (Sulfonamide Antibiotics) Allergy (Verified 12/31/12 07:29) UNK Home Medications: Warfarin Sodium [Coumadin*] 4 mg PO DAILY 11/16/22 - Past Medical/Surgical History -: ulcerative cholitis "states no longer has since large bowel removed -: removal of large bowel -: removal of pulmonary embolism open chest, -: appendectomy - Social History Alcohol use: No CD- Drugs: No Caffeine use: No Review of Systems 10-point ROS is otherwise unremarkable Physical Examination - Physical Exam General: Alert, In no apparent distress, Oriented x3 HEENT: Atraumatic, Normocephalic, PERRLA Neck: Supple, 2+ carotid pulse no bruit, JVD not distended Respiratory: Clear to auscultation bilaterally, Normal air movement Cardiovascular: No edema, Normal pulses, Other (Sinus tachycardia) Capillary refill: <2 Seconds Gastrointestinal: Normal bowel sounds, Soft and benign Musculoskeletal: No clubbing, No swelling - Studies Laboratory Data (last 24 hrs) 11/15/22 11/15/22 11/15/22 17:50 17:50 17:50 WBC 7.80 Hgb 15.7 H Hct 46.0 H Plt Count 631 H PT 29.2 H INR 2.65 APTT 44.0 H Sodium 125 L Potassium 4.1 BUN 37 H Creatinine 3.22 H Glucose 114 H Total Bilirubin 0.7 AST 27 ALT 28 Alkaline Phosphatase 95 Lipase 110 H Assessment and Plan - Plan Assessment plan Acute cystitis Colitis Leukocytosis Dehydration Acute kidney injury Lactic acidosis Anxiety History of a PE on chronic anticoagulation warfarin History of ulcerative colitis Acute cystitis Colitis Leukocytosis Lactic acidosis IV fluids, Flagyl, IV Cipro as needed antiemetics cultures, UA, trend lactic, trend WBCs WBCs normal at 7.8, no left shift, UA leukoesterase greater than 500 lactic 2.3, repeat lactic 1.0, CT of the abdomen pelvis IMPRESSION: The colon in the right flank demonstrates wall thickening and surrounding lymph nodes. This could indicate the nonspecific colitis. No pneumatosis coli seen. We recommended n.p.o. diet patient insisted on clear liquid diet Dehydration Acute kidney injury IV fluids, trend kidney function, avoid nephrotoxic medications acute kidney injury BUN 37 creatinine 3.22, Nephrology consult patient requested Dr. Mullins History of ulcerative colitis prior history of ulcerative colitis with colon resection with current J-pouch, she reports that she normally has 6-7 stools per day as baseline that are nonbloody. Patient refused to see Dr. Lacy in the a.m. for GI consult Anxiety As needed's analytics History of a PE on warfarin PT/INR in the a.m. Diet clear liquid Full code DVT heparin Discharge Plan: Home Plan to discharge in: 48 Hours - Advance Directives Does patient have a Living Will: No Does patient have a Durable POA for Healthcare: No - Code Status/Comfort Care Code Status: Full Code Physician Review: Patient Assessed, Agree with Above Assessment and Plan Critical Care: No
[2022-11-15] MEDS ORDERED: LORazepam 2 MG/ML VIAL ONE (21:35)
[2022-11-15] MEDS ORDERED: ALPRAZOLAM 0.25 MG TABLET PO PRN (21:47)
[2022-11-15] MEDS ORDERED: ONDANSETRON 4 MG/2 ML VIAL IV ONE ×2 (22:52→23:16)
[2022-11-15 23:03] LABS: Renal Epithelial <5 /HPF (None Seen); Specific Gravity 1.008 (1.005-1.030); Urine Bacteria <20 /HPF (<20); Urine Bilirubin NEGATIVE (Negative); Urine Blood Negative (Negative); Urine Clarity Extremely Turbid (Clear); Urine Color Light-Yellow (Yellow); Urine Glucose NEGATIVE (Negative); Urine Mucus Slight /HPF (None Seen); Urine Protein NEGATIVE (Negative); Urine RBC <5 /HPF (None Seen); Urine Urobilinogen Normal (Normal)
[2022-11-15 23:21] LABS: UR SODIUM < 15 mmol/L (27-287)
[2022-11-16] MEDS: NA CHLORIDE 0.9% 1,000 ML IV SCH ×3 (00:41→12:19)
[2022-11-16 01:09] VITALS: BMI 33.0
[2022-11-16] MEDS: METRONIDAZOLE 500mg IVPB 500 MG/100 ML BAG IV SCH ×3 (03:14→17:24)
[2022-11-16] MEDS ORDERED: LORazepam 2 MG/ML VIAL IV PRN (03:30)
[2022-11-16] MEDS ORDERED: ONDANSETRON 4 MG/2 ML VIAL IV PRN (05:00)
[2022-11-16 07:24] LABS: Absolute Lymphocytes (CBC) 0.9 K/uL (0.7-4.9); Hematocrit 36.5 % (36.0-45.0); Lymphocytes % 11.1 % (15.3-44.8); MCV 79.4 fL (80-100); MPV 6.7 fL (7.6-11.3); Platelets 458 thou/uL (152-406); Protime INR 2.85
[2022-11-16 07:36] LABS: Magnesium 2.2 mg/dL (1.6-2.4); Potassium 4.3 mEq/L (3.5-5.1)
[2022-11-16 08:44] LABS: Anisocytosis SLIGHT; Blood Morphology Comment NOTED (NOT SEEN); Platelet Estimate ADEQ; White Blood Cell Scan OK (OK)
[2022-11-16] MEDS ORDERED: HEPARIN 5000 UNIT/ML 1 ML VIAL SQ SCH (09:00)
--- NOTE | 2022-11-16 09:15 | P.CNS ---
Date of Consult: 11/16/22 Reason for Consult: BELLO Requesting Physician: megan ojeda Chief Complaint: Dehydration History of Present Illness: 47-year-old -[place] female with a past medical history of ulcerative colitis, pulmonary embolus on warfarin presents to the emergency room with dehydration. 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 She reports a prior history of ulcerative colitis with colon resection with current J-pouch, she reports that she normally has 6-7 stools per day as baseline that are nonbloody. She reports mild nausea, difficulty tolerating p.o. intake. Worse over the last 2 days. Laboratory evaluation lactic two-point 3 repeat 1.0, WBCs normal at 7.8, no left shift, acute kidney injury BUN 37 creatinine 3.22, UA leukoesterase greater than 500, CT of the abdomen pelvis IMPRESSION: The colon in the right flank demonstrates wall thickening and surrounding lymph nodes. This could indicate the nonspecific colitis. No pneumatosis coli seen. Plan to admit for dehydration, acute kidney injury, acute cystitis, colitis. She reports 7-8 days of poor intake due to a flare of her UC. Decreased urine output. No NSAIDs. No bladder emptying issues. She reports a history of recurrent UTIs. She was told by Dr. Warren in the past that she has a duplicated collecting system. She admits to a poor diet with sugary drinks. 16:25 This 47 yrs old Black Female presents to ER via Ambulatory with complaints of Doesn't sb4 Feel Right. 16:26 Onset: The symptoms/episode began/occurred 1 week(s) ago. Associated signs and sb4 symptoms: Pertinent positives: abdominal pain, diarrhea, patient is unable to take anything by mouth Pertinent negatives: chest pain, fever, shortness of breath. Modifying factors: The patient symptoms are alleviated by nothing, the patient symptoms are aggravated by drinking, eating food. The patient has experienced similar episodes in the past, multiple times. The patient has not recently seen a physician. patient with history of UC s/p colectomy and ileoanal anastomosis 20 years ago presents with complaints of abdominal pain, weakness. states she gets flare ups like these and usually flagyl resolves it but it has not this time and she feels incredibly dehydrated. Allergies morphine Allergy (Verified 12/31/12 07:32) Itching Sulfa (Sulfonamide Antibiotics) Allergy (Verified 12/31/12 07:29) UNK Home medications list reviewed: Yes Home Medications: Warfarin Sodium [Coumadin*] 4 mg PO DAILY 11/16/22 - Past Medical/Surgical History Diabetic: No -: Ulcerative Colitis sp proctocolectomy with J-pouch -: Hx BELLO (Dr. Mullins/ Dr. Solano) -: Hx PE on anticoagulation -: Proctocolectomy with J-Pouch -: removal of pulmonary embolism open chest, -: appendectomy - Social History Smoking Status: Never smoker Alcohol use: No CD- Drugs: No Caffeine use: No Place of Residence: Home Review of Systems 10-point ROS is otherwise unremarkable General: Weakness, Malaise Gastrointestinal: Abdominal Pain Physical Examination Temp Pulse Resp BP Pulse Ox 97.9 F 88 16 113/77 98 11/16/22 08:00 11/16/22 08:00 11/16/22 08:00 11/16/22 08:00 11/16/22 08:00 General: In no apparent distress, Oriented x3, Cooperative HEENT: Atraumatic Neck: Supple Respiratory: Clear to auscultation bilaterally, Normal air movement Cardiovascular: No edema, Regular rate/rhythm Gastrointestinal: Soft and benign, Non-distended Musculoskeletal: No clubbing, No contractures Integumentary: No rashes, No cyanosis Neurological: Normal speech Laboratory Data (last 24 hrs) 11/15/22 11/15/22 11/15/22 17:50 17:50 17:50 WBC 7.80 Hgb 15.7 H Hct 46.0 H Plt Count 631 H PT 29.2 H INR 2.65 APTT 44.0 H Sodium 125 L Potassium 4.1 BUN 37 H Creatinine 3.22 H Glucose 114 H Total Bilirubin 0.7 AST 27 ALT 28 Alkaline Phosphatase 95 Lipase 110 H Imagings Data: EXAM DESCRIPTION: CT - Abdomen Pelvis Wo Contrast - 11/15/2022 7:38 pm CLINICAL HISTORY: Abdominal pain. ABD PAIN COMPARISON: Abdomen Pelvis W/Wo Contrast dated 08/29/2016 TECHNIQUE: CT imaging of the abdomen and pelvis was performed without contrast. Solid organ, bowel and vascular assessment is limited due to lack of IV and oral contrast. All CT scans are performed using dose optimization technique as appropriate and may include automated exposure control or mA/KV adjustment according to patient size. FINDINGS: The lower lung campbell are clear.Vena cava filter present. The liver, spleen, pancreas, adrenal glands and kidneys are within normal limits for a limited non-contrast examination. No bowel obstruction, free air, free fluid or abscess. Postsurgical changes involve the colon. Wall thickening is present along the colon in the right flank with the numerous adjacent prominent lymph nodes. Nonvisualized appendix. Moderate L5-S1 degenerative changes. IMPRESSION: The colon in the right flank demonstrates wall thickening and surrounding lymph nodes. This could indicate the nonspecific colitis. No pneumatosis coli seen. A limited non-contrast examination was performed as detailed. Conclusions/Impression: Stage III BELLO likely due to hypovolemia CKD II? -No NSAIDs -Continue IVF with NS Hypovolemic Hyponatremia -Continue IVF with NS NAG Acidosis -Start oral bicarb Hypercalcemia likely due to hypovolemia Hypocalcemia -Continue IVF with NS -Start Ergo Microcytosis -Check iron status -Check B12 due to colectomy Hospitalist & ER notes reviewed Thank you kindly for the consultation
[2022-11-16] MEDS: SODIUM BICARB 325 MG TAB PO SCH ×4 (10:49→20:17)
[2022-11-16] MEDS ORDERED: DRISDOL (VITAMIN D=ERGOCALCIFEROL) 50000 UNIT CAP PO SCH (12:00)
--- NOTE | 2022-11-16 12:38 | EKG ---
Test Date: 2022-11-15 Test Time: 16:09:13 Jigman: MATTEO MEASUREMENT RESULTS: Intervals: Rate: 115 VA: 164 QRSD: 70 QT: 320 QTc: 442 [place]: P: 66 VA: 164 QRS: 57 T: -6 INTERPRETIVE STATEMENTS: Sinus tachycardia Nonspecific T wave abnormality Abnormal ECG Compared to ECG 10/02/2004 17:47:00 No significant changes Electronically Signed On 11-16-22 12:37:04 CDT by Sam Burdick
[2022-11-16] MEDS ORDERED: WARFARIN SODIUM 4 MG TAB PO SCH ×2 (17:00→18:37)
--- NOTE | 2022-11-16 18:45 | P.PN ---
Subjective Date of Service: 11/16/22 Chief Complaint: Dehydration Patient denies any complaint. She denies any nausea or vomiting. She denies any diarrhea. Physical Examination - Vital Signs Temperature: 97.9 F Blood Pressure: 103/55 Pulse: 84 Respirations: 16 Pulse Ox (%): 100 Assessment And Plan - Plan Physical Exam General: Alert, In no apparent distress, Oriented x3 Neck: Supple, JVD not distended Respiratory: Clear to auscultation bilaterally, Normal air movement Cardiovascular: No edema, Normal pulses, normal heart sounds, regular rate, normal rate. Gastrointestinal: Normal bowel sounds, Soft, nontender. Musculoskeletal: No clubbing, No swelling Assessment plan Colitis Leukocytosis Dehydration Acute kidney injury Lactic acidosis History of a PE on chronic anticoagulation warfarin History of ulcerative colitis Colitis-chronic Leukocytosis Lactic acidosis Continue IV hydration. Dehydration Acute kidney injury Prerenal failure Serum creatinine is improving. Nephrology Dr. Mullins input appreciated. Monitor renal function with hydration. History of ulcerative colitis prior history of ulcerative colitis with colon resection with current J-pouch, she reports that she normally has 6-7 stools per day as baseline that are nonbloody. History of a PE on warfarin Continue warfarin. Monitor PT/INR. Diet as tolerated. Full code Discharge Plan: Home Plan to discharge in: 24 Hours
[2022-11-16] MEDS ORDERED: CIPROFLOXACIN 400mg IV 400 MG/200 ML BAG IV SCH (21:00)
[2022-11-16] MEDS: CYANOCOBALAMIN 1000MCG/ML INJ SQ SCH (21:03)
[2022-11-17] MEDS: NA CHLORIDE 0.9% 1,000 ML IV SCH (00:34)
[2022-11-17] MEDS: METRONIDAZOLE 500mg IVPB 500 MG/100 ML BAG IV SCH ×2 (00:34→08:57)
[2022-11-17 03:15] LABS: Absolute Lymphocytes (CBC) 1.7 K/uL (0.7-4.9); Lymphocytes % 14.2 % (15.3-44.8); MCV 80.9 fL (80-100); MPV 6.9 fL (7.6-11.3); Platelets 463 thou/uL (152-406)
[2022-11-17 03:21] LABS: Phosphorus 2.3 mg/dL (2.5-4.9); Potassium 3.9 mEq/L (3.5-5.1); Uric Acid 7.9 mg/dL (2.6-6.0)
[2022-11-17 08:18] VITALS: TEMP 97.6; O2SAT 99
--- NOTE | 2022-11-17 08:49 | P.DS ---
Admission Date: 11/15/22 Discharge Date: 11/17/22 Disposition: ROUTINE DISCHARGE Discharge Condition: FAIR Reason for Admission: Dehydration Brief History of Present Illness: 47-year-old -[place] female with a past medical history of ulcerative colitis, pulmonary embolus on warfarin presents to the emergency room with a complaint of dehydration. She reported being out in the heat for 3 days 100+ degree weather. She reports a prior history of ulcerative colitis with colon resection with current J-pouch. She reported that she normally has 6-7 stools per day as baseline that are nonbloody. She reported mild nausea, difficulty tolerating p.o. intake. Laboratory evaluation showed lactic acid of 2.3, repeat 1.0, WBCs normal at 7.8, no left shift, acute kidney injury BUN 37 creatinine 3.22, UA leukoesterase greater than 500, CT of the abdomen pelvis showed colon in the right flank demonstrating wall thickening and surrounding lymph nodes which could indicate nonspecific colitis. No pneumatosis coli seen. Patient was hospitalized for further management of BELLO. Hospital Course: Diagnosis Colitis Leukocytosis Dehydration Acute kidney injury Lactic acidosis History of a PE on chronic anticoagulation warfarin History of ulcerative colitis Patient admitted to the medical floor and the following medical problems addressed: Colitis-chronic Leukocytosis Lactic acidosis Patient was treated with IV ciprofloxacin and Flagyl along with IV fluid. Diet was later advanced from clear liquid to solid diet which she tolerated. Dehydration Acute kidney injury Prerenal failure secondary to dehydration Serum creatinine significantly improved with IV hydration. Nephrology Dr. Mullins evaluated patient and assisted with management Patient informed to stay hydrated given her frequent BM. History of ulcerative colitis prior history of ulcerative colitis with colon resection with current J-pouch, she reports that she normally has 6-7 stools per day as baseline that are nonbloody. Stable. Vitamin B12 deficiency Likely secondary to decreased absorption as a result of small bowel resection. Patient started on subcutaneous vitamin B12 replacement. She is informed she will need to follow-up with her PCP to continue the vitamin B12 replacement. History of a PE on warfarin Continued warfarin. INR was therapeutic. Vital Signs/Physical Exam: Temp Pulse Resp BP Pulse Ox 97.6 F 70 16 83/45 L 99 11/17/22 08:00 11/17/22 08:00 11/17/22 08:00 11/17/22 08:00 11/17/22 08:00 General: Alert, In no apparent distress, Oriented x3 HEENT: Mucous membr. moist/pink Neck: JVD not distended Respiratory: Clear to auscultation bilaterally, Normal air movement Cardiovascular: No edema, Regular rate/rhythm, Normal S1 S2 Gastrointestinal: Normal bowel sounds, Soft and benign, Non-distended Musculoskeletal: No swelling Integumentary: No rashes Neurological: Normal strength at 5/5 x4 extr Laboratory Data at Discharge: WBC 11.80 thou/uL (4.3-10.9) H 11/17/22 02:32 Hgb 11.5 g/dL (12.0-15.0) L D 11/17/22 02:32 Hct 34.0 % (36.0-45.0) L 11/17/22 02:32 Plt Count 463 thou/uL (152-406) H 11/17/22 02:32 PT 31.4 SECONDS (9.5-12.5) H 11/16/22 06:56 INR 2.85 11/16/22 06:56 APTT 44.0 SECONDS (24.3-36.9) H 11/15/22 17:50 Sodium 136 mEq/L (136-145) D 11/17/22 02:32 Potassium 3.9 mEq/L (3.5-5.1) 11/17/22 02:32 BUN 20 mg/dL (7-18) H 11/17/22 02:32 Creatinine 1.64 mg/dL (0.55-1.02) H 11/17/22 02:32 Glucose 108 mg/dL (74-106) H 11/17/22 02:32 Uric Acid 7.9 mg/dL (2.6-6.0) H 11/17/22 02:32 Phosphorus 2.3 mg/dL (2.5-4.9) L 11/17/22 02:32 Magnesium 2.0 mg/dL (1.6-2.4) 11/17/22 02:32 Total Bilirubin 0.7 mg/dL (0.2-1.0) 11/15/22 17:50 AST 27 U/L (15-37) 11/15/22 17:50 ALT 28 U/L (13-56) 11/15/22 17:50 Alkaline Phosphatase 95 U/L (45-117) 11/15/22 17:50 Lipase 110 U/L (13-75) H 11/15/22 17:50 Home Medications: Warfarin Sodium [Coumadin*] 4 mg PO DAILY 11/16/22 Cyanocobalamin [Vitamin B-12*] 1,000 mcg SQ DAILY #0 vial 11/17/22 Vitamin D [Drisdol*] 50,000 unit PO Q7D #4 cap 11/17/22 New Medications: Vitamin D [Drisdol*] 50,000 unit PO Q7D #4 cap Followup: Amor Mullins DO [ACTIVE - CAN ADMIT] - 1 Week Time spent managing pt's care (in minutes): 34
[2022-11-17] MEDS: CYANOCOBALAMIN 1000MCG/ML INJ SQ SCH (09:00)
[2022-11-17] MEDS ORDERED: MULTIVITAMINS,THERAPEUT 1 TAB PO SCH (09:00)
[2022-11-17] MEDS: SODIUM BICARB 325 MG TAB PO SCH (09:00)
[2022-11-17 09:02] LABS: Specific Gravity 1.008 (1.005-1.030); Transitional Epithelial <5 /HPF (None Seen); Urine Bacteria <20 /HPF (<20); Urine Bilirubin NEGATIVE (Negative); Urine Blood Negative (Negative); Urine Clarity Extremely Turbid (Clear); Urine Color Light-Yellow (Yellow); Urine Glucose NEGATIVE (Negative); Urine Mucus Slight /HPF (None Seen); Urine Protein NEGATIVE (Negative); Urine RBC <5 /HPF (None Seen); Urine Urobilinogen Normal (Normal)
--- NOTE | 2022-11-17 10:39 | P.PN ---
(S) Pt reports improvement in GI symptoms, feels better, renal function improving, BP low this AM but denies orthostatic symptoms (O) Vitals reviewed in the EMR General: In no apparent distress, Oriented x3, Cooperative HEENT: Atraumatic, sclera anicteric Neck: Supple Respiratory: Clear to auscultation bilaterally, Normal air movement Cardiovascular: No edema, Regular rate/rhythm Gastrointestinal: Soft and benign, Non-distended Musculoskeletal: No contractures Integumentary: No rashes Neurological: Normal speech, awake, alert Imagings Data: EXAM DESCRIPTION: CT - Abdomen Pelvis Wo Contrast - 11/15/2022 7:38 pm CLINICAL HISTORY: Abdominal pain. ABD PAIN COMPARISON: Abdomen Pelvis W/Wo Contrast dated 08/29/2016 TECHNIQUE: CT imaging of the abdomen and pelvis was performed without contrast. Solid organ, bowel and vascular assessment is limited due to lack of IV and oral contrast. All CT scans are performed using dose optimization technique as appropriate and may include automated exposure control or mA/KV adjustment according to patient size. FINDINGS: The lower lung campbell are clear.Vena cava filter present. The liver, spleen, pancreas, adrenal glands and kidneys are within normal limits for a limited non-contrast examination. No bowel obstruction, free air, free fluid or abscess. Postsurgical changes involve the colon. Wall thickening is present along the colon in the right flank with the numerous adjacent prominent lymph nodes. Nonvisualized appendix. Moderate L5-S1 degenerative changes. IMPRESSION: The colon in the right flank demonstrates wall thickening and surrounding lymph nodes. This could indicate the nonspecific colitis. No pneumatosis coli seen. A limited non-contrast examination was performed as detailed. Conclusions/Impression: Stage III ARF 2nd to pre-renal azotemia -Cr level steadily downward trending with hydration, f/u as OP to ensure levels normalize. Renal images on CT unremarkable. Hypovolemic Hyponatremia -Resolved on isotonic IVF NAG Acidosis -2nd to diarrhea, renal impairment -improved Hypotension, unspecified -Re-assess BP, ensure pt is not orthostatic. If BP remains low, cont hydration. Diogenes Solano MD, [facility]
[2022-11-17 10:52] LABS: UR PROTEIN 11.1 mg/dL (<11.9); Urine Protein/Creatinine Ratio 0.15 ratio (<0.15)
[2022-11-17 10:59] LABS: UR MICROALBUMIN < 0.5 mg/dL (< 1.9)
[2022-11-17 11:29] VITALS: BP 98/54
[2022-11-17] MEDS ORDERED: WARFARIN SODIUM 4 MG TAB PO SCH (17:00)
== END 2022-11-17 15:12 | disposition home or self-care (01) | DRG 683 ==
LOC: ER 15:38 → ERHOLD 21:41 → 4TH 23:35
PROVIDERS: ADMIT Internal Medicine; ATTEND Internal Medicine
DX: N17.9 Acute kidney failure, unspecified (principal); E87.1 Hypo-osmolality and hyponatremia; K51.90 Ulcerative colitis, unspecified, without complications; N30.00 Acute cystitis without hematuria; E87.20 Acidosis, unspecified; F41.9 Anxiety disorder, unspecified; E83.51 Hypocalcemia; E83.52 Hypercalcemia; E86.0 Dehydration; Z88.5 Allergy status to narcotic agent; Z88.2 Allergy status to sulfonamides; Z79.01 Long term (current) use of anticoagulants; Z90.49 Acquired absence of other specified parts of digestive tract; Z86.711 Personal history of pulmonary embolism
CPT/HCPCS: 36415; 74176; 80048; 80053; 81001; 82043; 82570; 82607; 83540; 83605; 83690; 83735; 83930; 83935; 84100; 84132; 84145; 84156; 84300; 84466; 84550; 85025; 85610; 85730; 87040; 87086; 87088; 93005; 99285; J0744; J1644; J2405; J3010; J3420; J7030

== ENCOUNTER 2023-06-14 16:06 | Observation (INO) | payer BC ==
--- OUTSIDE RECORDS SUMMARY | 2023-06-14 16:09 | XMS REPORT | Continuity of Care Document ---
Author Name Unknown Address [address] [facility] [address] [place] [address] [facility] Address [address] [facility] [address] [place] [address] Care Team Providers Care Manager Of Corporate Name Role Phone None, None Primary Care Physician [phone] Marcelina Valdovinos MD Attending Clinician [phone] RADIOLOGY Attending Clinician Unavailable Radiology Attending Clinician Unavailable CROW GRIMES Attending Clinician UnavailCROW Greco Attending Clinician UnavailRemy Hannah MD Attending Clinician [phone] Attending Clinician Unavailable MIKA FIGUEROA Attending Clinician Unafilipe ailable COVID-PFIZER RANGEL BLANCO Attending Clinician Unavailable Doctor Unassigned, [place] Attending Clinician U dejaailSASKIA Mays Attending Clinician Unavailable [id number] Attending Clinician Unavailable DUYEN WILSON Attending Clinician Unavailable Lakesha Castillo Attending Clinician [phone] LAKESHA HERNANDEZ Attending Clinician Unavailable Saskia Hall PA-C Attending Clinician [phone] Nurse, Adc Pob Immunization Attending Clinician Unavailable Gopi Goddard DO Attending Clinician GOPI GODDARD Attending Clinician Unavail able DANIELLE GALICIA Attending Clinician Unavailable SAMUEL RICKETTS Admitting Clinician UnavailASSKIA Lamb Admitting Clinician Unavailable Payers Payer Name Policy Type Policy Number Effective Date Expirati on Date Source [employer]BSTX BLUE ESSENTIALS/BLUE ESSENTIALS ACCESS O [id number] 2019 00:00:00 TRS BLUE ESSENTIALS CAPITATED PRIMARY 9 [id number] 2021 00:00:00 Blue Cross [employer] of [place] C1 [id number] [facility] Problems Condition Name Condition Details Condition Category Status Onset Date Resolution Date Last Treatment Date Treating Clinician Comments Source Pelvic pain Pelvic pain Disease Active - 00:00: 00 [facility] Hemorrhagi c cystitis Hemorrhagi c cystitis Disease Active 10-05 00:00: 00 [facility] Neck swelling Neck swelling Disease Active 10-05 00:00: 00 [facility] Acute vaginitis Acute vaginitis Disease Active 09-14 00:00: 00 [facility] Yeast infection Yeast infection Disease Active 09-14 00:00: 00 [facility] Encounter to establish care Encounter to establish care Disease Active 07-25 00:00: 00 [facility] Anxiety and depression Anxiety and depression Disease Active 07-25 00:00: 00 [facility] Need for hepatitis C screening test Need for hepatitis C screening test Disease Active 07-25 00:00: 00 [facility] Protein S deficiency Protein S deficiency Disease Active 07-25 00:00: 00 [facility] Rash and other nonspecifi c skin eruption Rash and other nonspecifi c skin eruption Disease Active 07-25 00:00: 00 [facility] No known active problems No known active problems Disease [facility] Allergies, Adverse Reactions, Alerts Allergy Name Allergy Type Status Severity Reaction(s) Onset Date Inactive Date Treating Clinician Comments Source SULFA (SULFONA MIDE ANTIBIOT ICS) Drug Class Active Swelling 2020-03 005 00:00: 00 [facility] Sulfa Drugs Propensi ty to adverse reaction s Active Swelling 2020-03 0 00:00: 00 Karla clayton Sulfamet hoxazole W-Trimet hoprim Propensi ty to adverse reaction s Active Hives 06-17 00:00: 00 Karla clayton Bactrim Drug Allergy Active Hives 06-17 00:00: 00 Karla clayton Sulfamet hoxazole -Trimeth oprim Drug Allergy Active Hives 06-17 00:00: 00 [facility] MORPHINE DRUG INGREDI Active High ITCHING 06-17 00:00: 00 [facility] SULFAMET HOXAZOLE -TRIMETH OPRIM DRUG Active Med Hives 06-17 00:00: 00 [facility] Morphine Drug Allergy Active Itching 06-17 00:00: 00 Karla clayton Social History Social Habit Start Date Stop Date Quantity Comments Source Gender identity [facility] of [facility] Use [facility] Exposure to SARS-CoV-2 (event) 2022-04-10 00:00:00 2022-04-20 13:50:00 Not sure [facility] Tobacco use and exposure 2022-04-20 00:00:00 2022-04-20 00:00:00 Smokeless tobacco non-user [facility] Alcohol intake 2022-01-24 00:00:00 2022-01-24 00:00:00 Current non-drinker of alcohol (finding) Karla Reyes - External History of Social function 2021-01-11 00:00:00 2021-01-11 00:00:[address] [facility] Sex Assigned At 1975 00:00:00 1975 00:00:00 [facility] Smoking Status Start Date Stop Date Source Never smoked tobacco [facility] Medications Ordered Medication Name Filled Medication Name Start Date Stop Date Current Medication? Ordering Clinician Indication Dosage Frequency Signature (SIG) Comments Components Source warfarin 4 mg tablet 04-25 00:00: 00 Yes TAKE 2 TABLETS BY MOUTH ONCE DAILY (PENDING INR RESULTS) [facility] warfarin 4 mg tablet 04-25 00:00: 00 Yes TAKE 2 TABLETS BY MOUTH ONCE DAILY (PENDING INR RESULTS) [facility] No known medications 04-20 15:50: 54 No No known medication [facility] No known medications 04-20 15:50: 54 No No known medication [facility] Warfarin Sodium (Coumadin) 4 MG oral Tablet 2021-03 16:55: 34 01-24 00:00 :00 No 4mg Take 4 mg by mouth 2 times daily Karla Seybold - Externa l Warfarin Sodium (COUMADIN) 7.5 MG OR TABS 2021-03 16:20: 31 Yes 1 tablet daily on Sun, , Sun, Sun Karla Seybold - Externa l Warfarin Sodium (COUMADIN) 10 MG OR TABS 2021-03 16:20: 31 Yes 1 TABLET DAILY on and Sun Karla Seybold - Externa l Warfarin (COUMADIN) 5 MG oral Tablet 2021-03 16:20: 31 Yes [id number] 5mg Take 5 mg by mouth daily Takes on and only Karla Seybold - Externa l WARFARIN SODIUM OR 2021-03 16:20: 31 Yes [id number] 9mg Take 9 mg by mouth On Sunday, Sunday, Sunday, Sun and Sunday Karla Seybold - Externa l Warfarin Sodium (Coumadin) 4 MG oral Tablet 2021-03 00:00: 00 02-08 05:59 :00 No 8mg Take 2 tablets (8 mg total) by mouth daily for 14 days Karla Seybold - Externa l cephALEXin (KEFLEX) 500 mg capsule 7-13 00:00: 00 10-13 04:59 :00 No [id number] 500mg Take 1 capsule by mouth in the morning and 1 capsule in the evening. Do all this for 7 days. [facility] cephALEXin (KEFLEX) 500 mg capsule 2021-0 7-13 00:00: 00 10-13 04:59 :00 No [id number] 500mg Take 1 capsule by mouth in the morning and 1 capsule in the evening. Do all this for 7 days. [facility] cephALEXin (KEFLEX) 500 mg capsule 2021-0 7-13 00:00: 00 10-13 04:59 :00 No [id number] 500mg Take 1 capsule by mouth in the morning and 1 capsule in the evening. Do all this for 7 days. [facility] Phentermine HCl 15 MG oral Capsule 0 6-20 00:00: 00 Yes [id number] 1{capsu le} Take 1 capsule by mouth 2 times daily Karla clayton FLUoxetine 20 mg capsule 0 4-17 00:00: 00 Yes 20mg Take 20 mg by mouth daily. [facility] FLUoxetine 20 mg capsule 2021-0 4-17 00:00: 00 Yes 20mg Take 20 mg by mouth daily. [facility] FLUoxetine 20 mg capsule 0 4-17 00:00: 00 Yes 20mg Take 20 mg by mouth daily. [facility] FLUoxetine 20 mg capsule 0 4-17 00:00: 00 Yes 20mg Take 20 mg by mouth daily. [facility] FLUoxetine 20 mg capsule 0 4-17 00:00: 00 Yes 20mg Take 20 mg by mouth daily. [facility] FLUoxetine 20 mg capsule 2021-0 4-17 00:00: 00 Yes 20mg Take 20 mg by mouth daily. [facility] FLUoxetine 20 mg capsule 2021-0 4-17 00:00: 00 Yes 20mg Take 20 mg by mouth daily. [facility] FLUoxetine 20 mg capsule 2021-0 4-17 00:00: 00 Yes 20mg Take 20 mg by mouth daily. [facility] Fluoxetine HCl 20 MG oral Capsule 2021-0 4-17 00:00: 00 Yes [id number] 20mg Take 20 mg by mouth daily Karla clayton phentermine 15 mg capsule 2021-0 3-22 00:00: 00 Yes 15mg Take 15 mg by mouth 2 (two) times daily. [facility] phentermine 15 mg capsule 2021-0 322 00:00: 00 Yes 15mg Take 15 mg by mouth 2 (two) times daily. [facility] capsule 2021-0 322 00:00: 00 Yes 15mg Take 15 mg by mouth 2 (two) times daily. [facility] mg capsule 2021-0 322 00:00: 00 Yes 15mg Take 15 mg by mouth 2 (two) times daily. [facility] phentermine 15 mg capsule 2021-0 3 00:00: 00 Yes 15mg Take 15 mg by mouth 2 (two) times daily. [facility] phentermine 15 mg capsule 2021-0 06-14 00:00: 00 Yes 15mg Take 15 mg by mouth 2 (two) times daily. [facility] phentermine 15 mg capsule 2021-0 3 00:00: 00 Yes 15mg Take 15 mg by mouth 2 (two) times daily. [facility] phentermine 15 mg capsule 2021-0 3 00:00: 00 Yes 15mg Take 15 mg by mouth 2 (two) times daily. [facility] warfarin 4 mg tablet 0 816 00:00: 00 Yes TAKE 1 TABLET BY MOUTH ONCE DAILY DIRECTED [facility] warfarin 4 mg tablet 2020-0 816 00:00: 00 Yes TAKE 1 TABLET BY MOUTH ONCE DAILY DIRECTED [facility] warfarin 4 mg tablet 2020-0 816 00:00: 00 Yes TAKE 1 TABLET BY MOUTH ONCE DAILY DIRECTED [facility] warfarin 4 mg tablet 2020-0 8-16 00:00: 00 Yes TAKE 1 TABLET BY MOUTH ONCE DAILY DIRECTED [facility] warfarin 5 mg tablet 2020-0 8-10 00:00: 00 Yes 5mg Take 5 mg by mouth. [facility] warfarin 5 mg tablet 2020-0 8-10 00:00: 00 Yes 5mg Take 5 mg by mouth. [facility] warfarin 5 mg tablet 8-10 00:00: 00 Yes 5mg Take 5 mg by mouth. [facility] warfarin 5 mg tablet 810 00:00: 00 Yes 5mg Take 5 mg by mouth. [facility] warfarin 5 mg tablet 8 00:00: 00 Yes 5mg Take 5 mg by mouth. [facility] warfarin 5 mg tablet 8 00:00: 00 Yes 5mg Take 5 mg by mouth. [facility] levoFLOXaci n 750 MG levoFLOXaci n 750 MG 6-14 00:00: 00 09-11 00:00 :00 No 1{table t} QD levoFLOXac in 750 MG Warfarin Sodium 10 MG OR TABS 2009-03 00:00: 00 Yes 2 TABLET AT BEDTIME EVERY DAY Karla Reyes - Externa l Coumadin Coumadin No Coumadin Immunizations Ordered Immunization Name Filled Immunization Name Date Status Comments Source COVID-19 Bivalent Booster vaccine [employer] 2022-01-24 00:00:00 Completed Karla Sorenson SARS-COV-2 COVID-19 PFIZER VACCINE 2021-02-02 00:00:[address] [facility] SARS-COV-2 COVID-19 PFIZER VACCINE 2021-02-02 00:00:[address] [facility] SARS-COV-2 COVID-19 PFIZER VACCINE 2021-02-02 00:00:[address] [facility] SARS-COV-2 COVID-19 PFIZER VACCINE 2021-02-02 00:00:[address] [facility] SARS-COV-2 COVID-19 PFIZER VACCINE 2021-02-02 00:00:[address] [facility] SARS-COV-2 COVID-19 PFIZER VACCINE 2021-02-02 00:00:[address] [facility] SARS-COV-2 COVID-19 PFIZER VACCINE 2021-02-02 00:00:[address] [facility] SARS-COV-2 COVID-19 PFIZER VACCINE 2020 00:00:[address] [facility] SARS-COV-2 COVID-19 PFIZER VACCINE 2020 00:00:[address] [facility] SARS-COV-2 COVID-19 PFIZER VACCINE 2020 00:00:[address] [facility] SARS-COV-2 COVID-19 PFIZER VACCINE 2020 00:00:[address] [facility] SARS-COV-2 COVID-19 PFIZER VACCINE 2020 00:00:[address] [facility] SARS-COV-2 COVID-19 PFIZER VACCINE 2020 00:00:[address] [facility] SARS-COV-2 COVID-19 PFIZER VACCINE 2020 00:00:[address] [facility] SARS-COV-2 COVID-19 PFIZER VACCINE 2020-07-10 00:00:[address] [facility] SARS-COV-2 COVID-19 PFIZER VACCINE 2020-07-10 00:00:[address] [facility] SARS-COV-2 COVID-19 PFIZER VACCINE 2020-07-10 00:00:[address] [facility] SARS-COV-2 COVID-19 PFIZER VACCINE 2020-07-10 00:00:[address] [facility] SARS-COV-2 COVID-19 PFIZER VACCINE 2020-07-10 00:00:[address] [facility] SARS-COV-2 COVID-19 PFIZER VACCINE 2020-07-10 00:00:[address] [facility] SARS-COV-2 COVID-19 PFIZER VACCINE 2020-07-10 00:00:[address] [facility] SARS-COV-2 COVID-19 PFIZER VACCINE Unknown Completed [facility] SARS-COV-2 COVID-19 PFIZER VACCINE Unknown Completed [facility] SARS-COV-2 COVID-19 PFIZER VACCINE Unknown Completed [facility] Vital Signs Vital Name Observation Time Observation Value Comments S ource Systolic blood pressure 2022-04-20 21:23:00 118 mm[Hg] [facility] Diastolic blood pressure 2022-04-20 21:23:00 78 mm[Hg] [facility] Heart rate 2022-04-20 21:23:00 65 /min [facility] Body temperature 2022-04-20 21:23:00 36.22 Suzanna [facility] Body height 2022-04-20 21:23:00 154.9 cm [facility] Body weight 2022-04-20 21:23:00 92.987 [facility] BMI 2022-04-20 21:23:00 38.73 kg/m2 [facility] Systolic blood pressure 2022-01-24 21:15:00 110 mm[Hg] Karla Carrollybo ld - External Diastolic blood pressure 2022-01-24 21:15:00 66 mm[Hg] Karla Seybo ld - External Heart rate 2022-01-24 21:15:00 80 /min Kelse y Seybold - External Body temperature 2022-01-24 21:15:00 36.67 Suzanna Karla Seybold - External Respiratory rate 2022-01-24 21:15:00 18 /min Karla Carrollybold - External Body height 2022-01-24 21:15:00 155.4 cm Bere ey Seybold - External Systolic blood pressure 2021-10-05 20:40:00 145 mm[Hg] [facility] Diastolic blood pressure 2021-10-05 20:40:00 91 mm[Hg] [facility] Heart rate 2021-10-05 20:40:00 78 /min [facility] Body height 2021-10-05 20:40:00 154.9 cm [facility] Oxygen saturation in Arterial blood by Pulse oximetry 2021-10-05 20:40:00 97 /min [facility] height 2020-09-06 14:40:00 64 [in_i] Commo n [facility] weight 2020-09-06 14:40:00 210 [lb_av] Comm on [facility] temperature 2020-09-06 14:40:00 97.8 [degF] Com mon [facility] bmi 2020-09-06 14:40:00 36.04 kg/m2 [facility] oximetry 2020-09-06 14:40:00 97 % Commo n [facility] blood pressure systolic 2020-09-06 14:40:00 138 mm[Hg] [facility] blood pressure diastolic 2020-09-06 14:40:00 78 mm[Hg] [facility] Procedures Procedure Date / Time Performed Performing Clinician Source PHYSICIAN ORDERS 2022-01-18 05:01:00 Doctor Unawes signed, [place] [facility] INSURANCE CORRESPONDENCE 2021-10-24 05:01:00 Doc tor Unassigned, [place] [facility] CBC (INCLUDES DIFF/PLT)-Q 2021-10-07 21:01:[address] [facility] POCT URINALYSIS 2021-10-05 00:00:00 Lakesha Hernandez [facility] Encounters Start Date/Time End Date/Time Encounter Type Admission Type Attending Clinicians Care Facility Care Department Encounter ID Source 2022-05-01 12:18:59 Outpatient [facility] [id number] [facility] 2022-04-20 14:10:45 Outpatient [facility] [id number] [facility] 2022-04-12 10:29:23 Outpatient [facility] [id number] [facility] 2022-04-11 13:44:17 Outpatient [facility] [id number] [facility] 2022-04-07 09:05:49 Outpatient [facility] [id number] [facility] 2021-04-20 13:14:23 Outpatient [facility] [id number] [facility] 2023-03-23 00:00:00 2023-03-23 00:00:00 Telephone Marcelina Valdovinos [facility] [id number] 350.1.13.10 4.2.7.2.686 [id number] [facility] 2022-10-20 14:35:44 2022-10-20 23:59:00 Outpatient R RADIOLOGY [facility] [id number] [facility] 2022-10-20 14:35:44 2022-10-20 23:59:00 Hospital Encounter Radiology [facility] [id number] 350.1.13.10 4.2.7.2.686 [id number] [facility] 2022-06-06 08:00:00 2022-06-06 08:00:00 Outpatient CROW FIORE CHERYAL [facility] [id number] [facility] 2022-05-09 00:00:00 2022-05-09 00:00:00 Telephone Crow Grimes [facility] [id number] 350.1.13.10 4.2.7.2.686 [id number] [facility] 2022-04-20 14:30:00 2022-04-20 15:31:18 Office Visit Remy Velazquez [facility] [id number] [id number] [facility] 2022-04-13 16:30:00 2022-04-13 16:30:00 Outpatient REMY VELAZQUEZ [facility] [id number] [facility] 2022-01-24 17:20:00 2022-01-24 17:20:00 Outpatient DEONTE PEREZ [id number] Karla ayana 2022-01-24 16:15:00 2022-01-24 16:15:00 Outpatient MIKA FIGUEROA [id number] [facility] 2022-01-24 15:50:00 2022-01-24 15:50:00 Outpatient COVID-PFIZE RANGEL MONTOYA [id number] [facility] 2022-01-18 09:00:00 2022-01-18 09:00:00 Outpatient CROW FIORE CHERYAL [facility] [id number] [facility] 2022-01-18 09:00:00 2022-01-18 09:00:00 Outpatient CROW FIORE CHERYAL [facility] [id number] [facility] 2022-01-18 00:00:00 2022-01-18 00:00:00 Orders Only Doctor Unassigned, [place] [facility] [id number] 350.1.13.10 4.2.7.2.686 [id number] [facility] 2022-01-12 08:00:00 2022-01-12 08:00:00 Outpatient Mike HALL [facility] [id number] [facility] 2022-01-12 08:00:00 2022-01-12 08:00:00 Outpatient Mike HALL [facility] [id number] [facility] 2021-11-01 16:30:00 2021-11-01 16:30:00 Outpatient [facility]LA [facility] [id number] [facility] 2021-10-24 00:00:00 2021-10-24 00:00:00 Orders Only Doctor Unassigned, [place] [facility] [id number] 350.1.13.10 4.2.7.2.686 [id number] [facility] 2021-10-13 10:05:00 2021-10-13 10:05:00 Outpatient [id number] KARLA PEREZ [id number] [facility] 2021-10-13 09:00:00 2021-10-13 09:00:00 Office Visit DUYEN WILSON [id number] 350.1.13.13 [id number] [id number] Karla Reyes 2021-10-12 00:00:00 2021-10-12 00:00:00 Telephone Crow Grimes [facility] [id number] 350.1.13.10 4.2.7.2.686 [id number] [facility] 2021-10-07 00:00:00 2021-10-07 00:00:00 Orders Only Lakesha Hernandez [facility] 1.2.840.114 350.1.13.10 4.2.7.2.686 [id number] [facility] 2021-10-05 15:30:00 2021-10-05 16:58:23 Outpatient R LAKESHA HERNANDEZ [facility] [id number] [facility] 2021-10-05 15:30:00 2021-10-05 16:58:23 Office Visit Lakesha Hernandez [facility] [id number] 350.1.13.10 4.2.7.2.686 [id number] [facility] 2021-10-05 15:30:00 2021-10-05 16:58:23 Outpatient R LAKESHA HERNANDEZ [facility] [id number] [facility] 2021-09-16 00:00:00 2021-09-16 00:00:00 Telephone Lakesha Hernandez [facility] NANCY?[facility] [id number] 350.1.13.10 4.2.7.2.686 [id number] [facility] 2021-09-14 08:30:00 2021-09-14 09:17:00 Outpatient R LAKESHA HERNANDEZ [facility] [id number] [facility] 2021-09-14 08:30:00 2021-09-14 09:17:00 Office Visit Lakesha Hernandez [facility] NANCY?[facility] [id number] 350.1.13.10 4.2.7.2.686 [id number] [facility] 2021-09-14 08:30:00 2021-09-14 08:30:00 Outpatient R ADRIANELAKESHA Samayoa [facility] [id number] [facility] 2021-09-12 00:00:00 2021-09-12 00:00:00 [facility] 1.2.840.114 350.1.13.10 4.2.7.2.686 [id number] [facility] 2021-08-29 00:00:00 2021-08-29 00:00:00 Orders Only Doctor Unassigned, [place] [facility] 1.2.840.114 350.1.13.10 4.2.7.2.686 [id number] [facility] 2021-08-26 08:30:00 2021-08-26 08:30:00 Outpatient LAKESHA FOY [facility] [id number] [facility] 2021-08-08 16:00:00 2021-08-08 17:02:07 Out[facility] [id number] [facility] 2021-08-08 16:00:00 2021-08-08 17:02:07 [facility] 1.2.840.114 350.1.13.10 4.2.7.2.686 [id number] [facility] 2021-08-06 00:00:00 2021-08-06 00:00:00 Orders Only Lakesha Hernandez [facility] 1.2.840.114 350.1.13.10 4.2.7.2.686 [id number] [facility] 2021 00:00:00 2021 00:00:00 Telephone Sydney [facility] 1.2.840.114 350.1.13.10 4.2.7.2.686 [id number] [facility] 2021-08-01 00:00:00 2021-08-01 00:00:00 Case Management Crow Grimes [facility] 1.840.114 350.1.13.10 4.2.7.2.686 [id number] [facility] 2021-07-29 00:00:00 2021-07-29 00:00:00 Orders Only Doctor Unassigned, [place] [facility] 1.84.114 350.1.13.10 4.2.7.2.686 [id number] [facility] 2021-07-26 16:00:00 2021-07-26 17:03:38 Outpatient R SYDNEYCROW ZAHEERSTARRVENANCIOCROW SAEED [facility] [id number] [facility] 2021-07-26 16:00:00 2021-07-26 17:03:38 Office Visit VaniaCrow saeed [facility] 1.840.114 350.1.13.10 4.2.7.2.686 [id number] [facility] 2021-07-26 16:00:00 2021-07-26 16:00:00 Out[facility] [id number] [facility] 2021-07-25 15:00:00 2021-07-25 15:45:40 Outpatient R LAKESHA HERNANDEZ [facility] [id number] [facility] 2021-07-25 15:00:00 2021-07-25 15:45:40 Office Visit [facility] 1.840.114 350.1.13.10 4.2.7.2.686 [id number] [facility] 2021-06-10 12:43:02 2021-06-10 23:59:00 Hospital Encounter Saskia Hall [facility] 1.2.840.114 350.1.13.10 4.2.7.2.686 [id number] [facility] 2021-06-10 12:43:02 2021-06-10 23:59:00 Outpatient SASKIA ENGEL [facility] [id number] [facility] 2021-02-02 16:02:09 2021-02-02 16:02:17 Imm/Inj Visit Nurse, Naida White ImmunizatiGopi Vick [facility] [id number] [id number] [facility] 2021-02-02 15:50:00 2021-02-02 15:50:00 Outpatient GOPI IZQUIERDO [facility] [id number] [facility] 2021-01-11 09:30:00 2021-01-11 10:12:02 Outpatient Mike ELMORESASKIA FERNANDEZ [facility] [id number] [facility] 2021-01-11 09:28:01 2021-01-11 10:12:02 [facility] [id number] [id number] [facility] 2020-12-28 15:14:10 2020-12-28 15:53:09 [facility] [id number] [id number] [facility] 2020-12-28 15:00:00 2020-12-28 15:00:00 Outpatient Mike HALL [facility] [id number] [facility] 2020-09-06 00:00:00 2020-09-06 00:00:00 OFFICE VISIT NEW PT LEVEL 3 STLMLC STLMLC [id number] [facility] 2020 08:20:00 2020 16:04:44 Outpatient DANIELLE VILLANUEVA [facility] [id number] [facility] 2020-07-10 08:00:00 2020-07-10 08:10:11 Outpatient DANIELLE VILLANUEVA [facility] [id number] [facility] Results Test Description Test Time Test Comments Results Result Co mments Source [facility]IFIC [id number] 21:31:00* Test Item Value Reference Range Interpretation Comme nts POCT U SP GRAV (test code = 3255) 1.020 mg/dl See_Comment H [Automated message] The system which generated this result transmitted reference range: <=1.025. The reference range was not used to interpret this result as normal/abnormal. POCT PH U (test code = 3254) 5 mg/dl 5-8 POCT U LEUK EST (test code = 3263) + Negative - Negative POCT U NIT (test code = 3262) neg Negative - Negative POCT U PROT (test code = 3259) neg Negative - Negative POCT U GLU (test code = 3256) neg Negative - Negative POCT U KETONE (test code = 3258) neg Negative - Negative POCT U UROBILI (test code = 3260) neg 0.2-1 POCT U BILI (test code = 3261) neg Negative - Negative POCT U BLD (test code = 3257) trace Negative - Negative POCT U COLOR (test code = 3266) light yellow POCT U APPEAR (test code = 3267) hazy Lab Interpretation (test code = 54936-1) Abnormal [facility] Notes Date/Time Note Provider Source 2023-03-23 08:29:23 [id number] ZsMD/+SbrJRG nPOyBjM8VUJzaFkyQldDQH4PBHi4m13q 0281-66-44Z80:29:23 Returned pt's call regarding labs. Pt's name and were both verified prior to conversation. Pt was inquirig about MDL testing that was performed 07/2021 with fixed wing aircraft flight engineer and could not remember what she was tested for and what test came back positive. Informed ptstandard STD testing was performed and sent to the specialty lab MDL. Pt verbalized understanding. 33706-8Neuyrciej encounter ImfwMQ9548-38-11E70:35:01Telepho ne encounter NoteTXT1.2.840.857996.1.13.104.2 .7.2.563773|[id number] e for patient skax01500-0YpqmLPHEPNOARXNWodvkj leny C-CDA narrative [id number] E Burch [address] Jq[id number] 7740POTDCSBGCUDKBRWJOSDEZV9451-7 2-29T08:35:011.2.840.418362.1.72 .3.15|1.2.840.414954.1.13.104.2. [id number] Rosie Varner [facility] 2023-03-23 08:20:03 dAMBxCJpzXAQyzPEXYId owm2Vf12SP4e 8LstqyDBLe5j2O9pAeVYmf5b052ukr5f 2115-71-62G28:20:03 Pt want to go over labs or test she had done in July of 2021 78187-7Cfrgcipso encounter KxxiJT7665-44-05I72:20:33Telepho ne encounter NoteTXT1.2.840.381265.1.13.104.2 .7.2.711527|[id number] e for patient xmbs89247-8KkqtIGUMLEBJHTIYhixdf leny C-CDA narrative [id number] [address] Vd[id number]088-3 08:20:331.2.840.860296.1.72 .3.15|1.2.840.615051.1.13.104.2. [id number] Tabatha Balderrama [facility]"
[2023-06-14] MEDS ORDERED: ONDANSETRON 4 MG/2 ML VIAL ONE ×2 (17:32→18:27)
[2023-06-14] MEDS ORDERED: FAMOTIDINE 20 MG/2 ML VIAL IV ONE (17:32)
--- NOTE | 2023-06-14 17:41 | RAD REPORT ---
EXAM DESCRIPTION: Jennifer Single View06/14/2023 5:06 pm CLINICAL HISTORY: sob COMPARISON: 2014 FINDINGS: The lungs appear clear of acute infiltrate. The heart is normal size IMPRESSION: No acute abnormalities displayed
[2023-06-14 18:01] LABS: Absolute Basophils 0.1 K/uL (0-0.5); Absolute Eosinophils 0.1 K/uL (0-0.5); Absolute Lymphocytes (CBC) 1.8 K/uL (0.7-4.9); Absolute Monocytes 1.2 K/uL (0.1-1.3); Absolute Neutrophil 5.3 K/uL (1.8-8.0); Basophils % 0.9 % (0-1.3); Eosinophils % 1.5 % (0-4.4); Hematocrit 44.8 % (36.0-45.0); Hemoglobin 15.1 g/dL (12.0-15.0); Lymphocytes % 21.1 % (15.3-44.8); MCHC 33.6 g/dL (32.0-36.0); MCV 86.4 fL (80-100); MPV 7.4 fL (7.6-11.3); Monocytes % 14.4 % (3.3-12.3); Neutrophils % 62.1 % (41.7-73.7); Nucleated Red Blood Cells % 0.1 % (0-0); Platelets 562 thou/uL (152-406); RBC Red Blood Cell Count 5.19 M/uL (3.86-4.86); Red Cell Distribution Width 14.6 % (12.1-15.2)
[2023-06-14 18:05] LABS: PT Prothrombin Time 26.8 SECONDS (9.5-12.5); PTT, Activated Partial Thromb 40.4 SECONDS (24.3-36.9); Protime INR 2.5
[2023-06-14 18:34] LABS: ALT/SGPT 25 U/L (13-56); Albumin 3.7 g/dL (3.4-5.0); Albumin/Globulin Ratio 0.6 (1.1-1.8); Alkaline Phosphatase 107 U/L (45-117); Anion Gap 12.3 mEq/L (5.0-15.0); BUN Blood Urea Nitrogen 13 mg/dL (7-18); Bicarbonate 20 mEq/L (21-32); Bilirubin Direct 0.1 mg/dL (0-0.2); Bilirubin Indirect, Calculated 0.8 mg/dL (0.2-0.8); Bilirubin Total 0.9 mg/dL (0.2-1.0); Globulin 5.7 g/dL (2.3-3.5); Glomerular Filtration Rate 35 ml/min (=/>90); Glucose Level 111 mg/dL (74-106); Lipase 365 U/L (13-75); NT PRO-BNP 45 pg/mL (<125); Protein, Total 9.4 g/dL (6.4-8.2); Sodium Level 130 mEq/L (136-145)
[2023-06-14 18:35] LABS: AST/SGOT 37 U/L (15-37); Magnesium 2.3 mg/dL (1.6-2.4); Potassium 4.3 mEq/L (3.5-5.1); Troponin High Sensitivity < 3.0 pg/mL (<58.9)
[2023-06-14] MEDS ORDERED: METOCLOPRAMIDE 10 MG/2mL INJ ONE (19:35)
[2023-06-14] MEDS ORDERED: DICYCLOMINE HCL 20 MG/2 ML AMP IM ONE (19:35)
[2023-06-14] MEDS ORDERED: FENTANYL CITR 100 MCG/2 ML ONE ×2 (19:36→21:45)
--- NOTE | 2023-06-14 19:54 | RAD REPORT ---
EXAM DESCRIPTION: CT - Abdomen Pelvis Wo Contrast - 06/14/2023 7:20 pm CLINICAL HISTORY: Abdominal pain COMPARISON: 2022 TECHNIQUE: Computed axial tomography of the abdomen and pelvis was obtained. IV and oral contrast we re not requested. All CT scans are performed using dose optimization technique as appropriate and may include automated exposure control or mA/KV adjustment according to patient size. FINDINGS: The evaluation of solid organs, vessels and bowel is limited secondary to the lack of con trast administration. The liver, spleen, pancreas, adrenals and kidneys appear grossly normal. Postsurgical changes involve the colon. Mild thickening of the wall of the colon near midline extendi ng into the right within the abdomen. IVC filter in place. No adnexal mass. No evidence of diverticulitis Spondylosis L5-S1 IMPRESSION: Postsurgical changes involve the colon Mild thickening of the wall of the colon near midline extending into the right within the abdomen. Th is may indicate a mild colitis
[2023-06-14] MEDS ORDERED: METRONIDAZOLE 500mg IVPB 500 MG/100 ML BAG IV ONE (20:13)
--- NOTE | 2023-06-14 21:16 | ER ---
Nurse's Notes [facility] Name: Nurys Vaughn Age: 47 yrs Sex: Female : 1975 Arrival Date: 06/14/2023 Time: 16:06 Bed 5 Private MD: Diagnosis: Indeterminate colitis;Other acute pancreatitis without necrosis or infection Presentation: 06/13 16:18 Chief complaint: Patient states: "Since Sunday, I've been feeling bad, SOB, stomach mb9 pain, and dehydration". Coronavirus screen: Vaccine status: Patient reports receiving the 2nd dose of the covid vaccine. Ebola Screen: No symptoms or risks identified at this time. Initial Sepsis Screen: Does the patient meet any 2 criteria? No. Patient's initial sepsis screen is negative. Does the patient have a suspected source of infection? No. Patient's initial sepsis screen is negative. Risk Assessment: Do you want to hurt yourself or someone else? Patient reports no desire to harm self or others. Onset of symptoms was June 14, 2023. 16:18 Method Of Arrival: Ambulatory mb9 16:18 Acuity: RD 3 mb9 Triage Assessment: 16:22 General: Appears uncomfortable, Behavior is calm, cooperative. Pain: Complains of pain mb9 in abdomen. EENT: No signs and/or symptoms were reported regarding the EENT system. Neuro: Vazquez Agitation-Sedation Scale (RASS): 0 - Alert and Calm Level of Consciousness is awake, alert, obeys commands. Cardiovascular: Patient's skin is warm and dry. Respiratory: Reports shortness of breath Airway is patent Respiratory effort is even, unlabored, Respiratory pattern is regular, symmetrical, Onset: The symptoms/episode began/occurred gradually, the patient has mild shortness of breath. GI: Reports diarrhea, nausea. : No signs and/or symptoms were reported regarding the genitourinary system. Derm: Skin is pink, warm \\T\\ dry. Historical: - Allergies: 16:20 Morphine; mb9 16:20 Sulfa (Sulfonamide Antibiotics); mb9 - Home Meds: 16:20 Coumadin Oral [Active]; mb9 - PMHx: 16:20 PE; mb9 16:21 ulcerative colitis; mb9 - Immunization history:: Adult Immunizations up to date. - Social history:: Smoking status: Patient denies any tobacco usage or history of. Screenin:20 [facility] ED Fall Risk Assessment (Adult) History of falling in the last 3 months, rs5 including since admission No falls in past 3 months (0 pts) Confusion or Disorientation No (0 pts) Intoxicated or Sedated No (0 pts) Impaired Gait No (0 pts) Mobility Assist Device Used No (0 pt) Altered Elimination No (0 pt) Score/Fall Risk Level 0 - 2 = Low Risk Oriented to surroundings, Maintained a safe environment. Abuse screen: Denies threats or abuse. Nutritional screening: No deficits noted. Tuberculosis screening: No symptoms or risk factors identified. Assessment: 17:45 GI: Pt is actively vomiting bile. mb9 18:15 Reassessment: Pt arrived in room. rs5 18:20 General: Appears uncomfortable, Behavior is cooperative. Pain: Pain currently is 7 out rs5 of 10 on a pain scale. Quality of pain is described as aching, Is continuous. Pain: Complains of pain in abdomen. Neuro: Level of Consciousness is awake, alert, obeys commands, Oriented to person, place, time, situation. Cardiovascular: Patient's skin is warm and dry. Rhythm is regular. Respiratory: Reports shortness of breath Airway is patent Respiratory effort is even, unlabored, Respiratory pattern is regular, symmetrical, : No signs and/or symptoms were reported regarding the genitourinary system. EENT: No signs and/or symptoms were reported regarding the EENT system. Derm: Skin is intact, Skin is dry, Skin is normal, Skin temperature is warm. Musculoskeletal: Range of motion: intact in all extremities. 18:21 Reassessment: Provider notified pt is experiencing pain. rs5 19:15 Reassessment: Patient appears in no apparent distress at this time. Patient and/or jb4 family updated on plan of care and expected duration. Pain level reassessed. Patient is alert, oriented x 3, equal unlabored respirations, skin warm/dry/pink. 20:15 Reassessment: Patient appears in no apparent distress at this time. Patient and/or jb4 family updated on plan of care and expected duration. Pain level reassessed. Patient is alert, oriented x 3, equal unlabored respirations, skin warm/dry/pink. 21:15 Reassessment: Patient appears in no apparent distress at this time. Patient and/or jb4 family updated on plan of care and expected duration. Pain level reassessed. Patient is alert, oriented x 3, equal unlabored respirations, skin warm/dry/pink. while preparing to discharge pt, it was noted her HR was 122 when standing and that NS bolus had not yet been ask previously marked on MAY. Verified order with ER provider, IV was re-inserted, Fluids were started, see MAR for time. 22:30 Reassessment: Patient appears in no apparent distress at this time. Patient and/or jb4 family updated on plan of care and expected duration. Pain level reassessed. Patient is alert, oriented x 3, equal unlabored respirations, skin warm/dry/pink. Patient states feeling better. 23:30 Reassessment: Patient appears in no apparent distress at this time. Patient and/or jb4 family updated on plan of care and expected duration. Pain level reassessed. Patient is alert, oriented x 3, equal unlabored respirations, skin warm/dry/pink. 06/14 00:41 Reassessment: Patient appears in no apparent distress at this time. Patient and/or jb4 family updated on plan of care and expected duration. Pain level reassessed. Patient is alert, oriented x 3, equal unlabored respirations, skin warm/dry/pink. Vital Signs: 06/13 16:18 BP 107 / 89; Pulse 110; Resp 18; Temp 98.2; Pulse Ox 100% on R/A; mb9 21:23 BP 132 / 92; Pulse 122; Resp 16; Pulse Ox 100% on R/A; jb4 22:13 BP 128 / 84; Pulse 106; Resp 16; Pulse Ox 99% on R/A; jb4 23:00 BP 128 / 79; Pulse 99; Resp 16; Pulse Ox 100% on R/A; jb4 ED Course: 16:09 Patient arrived in ED. mg5 16:16 Marquise Edgar PA is PHCP. cp 16:16 Marquise Osman MD is Attending Physician. cp 16:18 Arm band placed on. mb9 16:20 Triage completed. mb9 16:20 Patient has correct armband on for positive identification. Bed in low position. Call rs5 light in reach. Side rails up X2. 17:08 XRAY Chest (1 view) In Process Unspecified. EDMS 17:44 Lipase Sent. mb9 17:44 Ptt, Activated Sent. mb9 17:45 Basic Metabolic Panel Sent. mb9 17:45 CBC with Diff Sent. mb9 17:45 LFT's Sent. mb9 17:45 Magnesium Sent. mb9 17:45 NT PRO-BNP Sent. mb9 17:45 PT-INR Sent. mb9 17:45 Troponin HS Sent. mb9 18:47 Seamus Mayfield, RN is Primary Nurse. rs5 19:22 CT Abd/Pelvis - Without Contrast In Process Unspecified. EDMS 21:15 IV discontinued, intact, bleeding controlled, No redness/swelling at site. Pressure jb4 dressing applied. 21:45 Inserted saline lock: Ultrasound guided IV started by TIM Rockwell. jb4 22:34 Wili Chacko MD is Hospitalizing Provider. cp 23:30 Provided Education on: need for admit.. jb4 06/14 00:52 Patient admitted, IV remains in place. jb4 00:53 No provider procedures requiring assistance completed. jb4 Administered Medications: 06/13 18:20 Drug: Ondansetron IVP 4 mg IVP once; over 2 minutes Route: IVP; Site: left antecubital; rs5 18:20 Drug: Famotidine IVP 20 mg IVP once; dilute with 10 mL 0.9% NaCl; give over 2 minutes rs5 Route: IVP; Site: left antecubital; 20:09 Drug: Dicyclomine IM 20 mg IM once Route: IM; Site: left gluteus; jb4 20:09 Drug: metoCLOPramide IVP 10 mg IVP once; over 1 to 2 minutes Route: IVP; Site: right jb4 antecubital; 20:09 Drug: fentaNYL (PF) IVP 25 mcg IVP once Route: IVP; Site: right antecubital; jb4 20:24 Drug: metroNIDAZOLE IVPB 500 mg 100 ml IVPB once over 30 mins Volume: 100 ml; Route: jb4 IVPB; Infused Over: 30 mins; Site: right antecubital; 22:21 Drug: fentaNYL (PF) IVP 25 mcg IVP once Route: IVP; Site: right antecubital; jb4 22:23 Drug: NS 0.9% IV 1000 ml IV at 999 ml/hr Per protocol Route: IV; Rate: 999 ml/hr; Site: jb4 right antecubital; 23:04 Drug: Ciprofloxacin IVPB 200 mg 100 ml IVPB once over 60 mins Volume: 100 ml; Route: jb4 IVPB; Infused Over: 60 mins; Site: right antecubital; Medication: 19:22 VIS not applicable for this client. rs5 Outcome: 21:15 Discharge ordered by . cp 22:35 Decision to Hospitalize by Provider. cp 06/14 00:53 Admitted to Tele accompanied by nurse, via wheelchair, room 430, with chart, Report jb4 called to TIM Sorto Condition: stable Discharge instructions given to patient, Instructed on the need for admit, Demonstrated understanding of instructions, 00:53 Patient left the ED. jb4 Signatures: Dispatcher [employer] EDMS Marquise Edgar PA PA cp Bryson, James, RN RN jb4 Rose Marie Shah RN RN mb9 Seamus Mayfield RN RN rs5 Pat Ashton mg5 Corrections: (The following items were deleted from the chart) 06/13 16:22 16:18 Pulse 110bpm; Resp 18bpm; Pulse Ox 100% RA; Temp 98.2F; mb9 mb9 18:31 08:00 Ondansetron IVP 4 mg IVP in left antecubital rs5 rs5 19:21 16:20 General: Appears uncomfortable, Behavior is cooperative, rs5 rs5 19:21 16:20 Pain: Complains of pain in abdomen rs5 rs5 :21 16:20 Neuro: rs5 rs5 19:21 16:20 Pain: Pain currently is 7 out of 10 on a pain scale. Quality of pain is described rs5 as aching, Is continuous, rs5 19:21 16:20 Neuro: Level of Consciousness is awake, alert, obeys commands, Oriented to rs5 person, place, time, situation, rs5 19:21 16:20 Cardiovascular: Patient's skin is warm and dry. Rhythm is regular rs5 rs5 19:21 16:20 Respiratory: Reports shortness of breath Airway is patent Respiratory effort is rs5 even, unlabored, Respiratory pattern is regular, symmetrical, rs5 19:21 16:20 : No signs and/or symptoms were reported regarding the genitourinary system. rs5rs5 :21 16:20 EENT: No signs and/or symptoms were reported regarding the EENT system. rs5 rs5 19:21 16:20 Derm: Skin is intact, Skin is dry, Skin is normal, Skin temperature is warm rs5 rs5 19:21 16:20 Musculoskeletal: Range of motion: intact in all extremities, rs5 rs5 19:21 16:20 Reassessment: Provider notified pt is experiencing pain. rs5 rs5 22:23 18:37 NS 0.9% IV 1000 ml IV at 999 ml/hr in left antecubital rs5 jb4
--- NOTE | 2023-06-14 21:16 | EDPHYS ---
Physician Documentation [facility] Name: Nurys Vaughn Age: 47 yrs Sex: Female : 1975 Arrival Date: 06/14/2023 Time: 16:06 Bed 5 Private MD: ED Physician Marquise Osman HPI: 06/13 16:30 This 47 yrs old Black Female presents to ER via Ambulatory with complaints of Shortness cp Of Breath. 16:30 The patient has shortness of breath at rest. cp 16:30 Onset: The symptoms/episode began/occurred today. The patient presents with abdominal cp pain. Onset: The symptoms/episode began/occurred 4 day(s) ago. Associated signs and symptoms: Pertinent positives: nausea, diarrhea, vomiting today, Pertinent negatives: chest pain, fever, blood in diarrhea. Historical: - Allergies: 16:20 Morphine; mb9 16:20 Sulfa (Sulfonamide Antibiotics); mb9 - Home Meds: 16:20 Coumadin Oral [Active]; mb9 - PMHx: 16:20 PE; mb9 16:21 ulcerative colitis; mb9 - Immunization history:: Adult Immunizations up to date. - Social history:: Smoking status: Patient denies any tobacco usage or history of. ROS: 16:35 Constitutional: Positive for poor PO intake, Negative for fever, cp 16:35 Eyes: Negative for injury, pain, redness, and discharge, cp 16:35 ENT: Negative for drainage from ear(s), ear pain, sore throat, difficulty swallowing, difficulty handling secretions, 16:35 Cardiovascular: Negative for chest pain, 16:35 Respiratory: Positive for shortness of breath, Negative for cough, wheezing, 16:35 Abdomen/GI: Positive for abdominal pain, nausea and vomiting, diarrhea, anorexia, Negative for constipation, hematemesis, black/tarry stool, rectal bleeding, 16:35 : Negative for urinary symptoms, vaginal bleeding, 16:35 Neuro: Positive for weakness, Negative for altered mental status, 16:35 All other systems are negative, cp Exam: 16:40 Constitutional: The patient appears in no acute distress, alert, awake, non-toxic, well cp developed, well nourished, uncomfortable, 16:40 Head/Face: Normocephalic, atraumatic. cp 16:40 Eyes: Periorbital structures: appear normal, Pupils: equal, round, and reactive to light and accomodation, Extraocular movements: intact throughout, Conjunctiva: normal, no exudate, no injection, Sclera: no appreciated abnormality, Lids and lashes: appear normal, bilaterally, 16:40 ENT: External ear(s): are unremarkable, Nose: is normal, Mouth: Lips: moist, Oral mucosa: pink and intact, moist, Posterior pharynx: is normal, airway is patent, no erythema, no exudate, 16:40 Chest/axilla: Inspection: normal, 16:40 Cardiovascular: Rate: tachycardic, Rhythm: regular, Edema: is not appreciated, JVD: is not appreciated, 16:40 Respiratory: the patient does not display signs of respiratory distress, Respirations: normal, no use of accessory muscles, labored breathing, is not present, Breath sounds: are clear throughout, no decreased breath sounds, no stridor, no wheezing, 16:40 Abdomen/GI: Inspection: abdomen appears normal, Bowel sounds: active, all quadrants, Palpation: soft, in all quadrants, moderate abdominal tenderness, in all quadrants, 16:40 Back: CVA tenderness, is absent, 16:40 Skin: no rash present. 16:40 Neuro: Orientation: to person, place \T\ time. Mentation: is normal, Motor: moves all fours, strength is normal, Sensation: is normal, 17:50 ECG was reviewed by the Attending Physician. cp Vital Signs: 16:18 BP 107 / 89; Pulse 110; Resp 18; Temp 98.2; Pulse Ox 100% on R/A; mb9 21:23 BP 132 / 92; Pulse 122; Resp 16; Pulse Ox 100% on R/A; jb4 22:13 BP 128 / 84; Pulse 106; Resp 16; Pulse Ox 99% on R/A; jb4 23:00 BP 128 / 79; Pulse 99; Resp 16; Pulse Ox 100% on R/A; jb4 MDM: 16:16 Patient medically screened. cp 17:00 Differential diagnosis: pneumonia, bowel obstruction, Cholelithiasis, gastritis, cp urinary tract infection, colitis, sepsis, dehydration. 20:10 Data reviewed: vital signs, nurses notes, lab test result(s), EKG, radiologic studies, cp CT scan, plain films. 20:10 I considered the following discharge prescriptions or medication management in the emergency department Medications were administered in the Emergency Department. See MAY. 22:25 ED course: VSS. Patient continues to have abdominal pain, nausea. Will admit for continued management. 22:25 Management of patient was discussed with the following: Hospitalist: DR Chacko will cp admit after discussion. 06/13 16:23 Order name: COVID-19 SARS RT PCR 06/13 16:23 Order name: Influenza Screen (a \T\ B) 06/13 16:23 Order name: Basic Metabolic Panel; Complete Time: 18:46 06/13 20:04 Interpretation: Normal except: NA 130; CO2 20; GLUC 111; CRE 1.79; GFR 35. 06/13 16:23 Order name: CBC with Diff; Complete Time: 18:14 06/13 18:15 Interpretation: Normal except: RBC 5.19; HGB 15.1; PLT 562; MPV 7.4; MN% 14.4. 06/13 16:23 Order name: LFT's; Complete Time: 18:46 06/13 21:13 Interpretation: Normal except: TP 9.4; GLOB 5.7; A/G 0.6. 06/13 16:23 Order name: Magnesium; Complete Time: 18:46 06/13 16:23 Order name: NT PRO-BNP; Complete Time: 18:46 06/13 16:23 Order name: PT-INR; Complete Time: 18:14 06/13 16:23 Order name: Troponin HS; Complete Time: 18:46 06/13 16:23 Order name: Ptt, Activated; Complete Time: 18:14 06/13 16:23 Order name: Lipase; Complete Time: 18:46 06/13 16:23 Order name: XRAY Chest (1 view); Complete Time: 18:14 06/13 19:03 Order name: CT Abd/Pelvis - Without Contrast; Complete Time: 20:03 cp 06/13 16:23 Order name: EKG; Complete Time: 16:24 cp 06/13 16:23 Order name: Cardiac monitoring; Complete Time: 18:47 06/13 16:23 Order name: EKG - Nurse/Tech; Complete Time: 18:47 06/13 16:23 Order name: IV Saline Lock; Complete Time: 18:47 cp 06/13 16:23 Order name: Labs collected and sent; Complete Time: 17:45 cp 06/13 16:23 Order name: O2 Per Protocol; Complete Time: 17:45 cp 06/13 16:23 Order name: O2 Sat Monitoring; Complete Time: 17:45 cp 06/13 20:53 Order name: PO challenge; Complete Time: 21:32 cp EC:50 Rate is 109 beats/min. Rhythm is regular. ID interval is normal. QRS interval is cp normal. QT interval is normal. T waves are Inverted in leads II, III, aVF, V2, V3, V4, V5, V6. Interpreted by me. Reviewed by me. Administered Medications: 18:20 Drug: Ondansetron IVP 4 mg IVP once; over 2 minutes Route: IVP; Site: left antecubital; rs5 18:20 Drug: Famotidine IVP 20 mg IVP once; dilute with 10 mL 0.9% NaCl; give over 2 minutes rs5 Route: IVP; Site: left antecubital; 20:09 Drug: Dicyclomine IM 20 mg IM once Route: IM; Site: left gluteus; jb4 20:09 Drug: metoCLOPramide IVP 10 mg IVP once; over 1 to 2 minutes Route: IVP; Site: right jb4 antecubital; 20:09 Drug: fentaNYL (PF) IVP 25 mcg IVP once Route: IVP; Site: right antecubital; jb4 20:24 Drug: metroNIDAZOLE IVPB 500 mg 100 ml IVPB once over 30 mins Volume: 100 ml; Route: jb4 IVPB; Infused Over: 30 mins; Site: right antecubital; 22:21 Drug: fentaNYL (PF) IVP 25 mcg IVP once Route: IVP; Site: right antecubital; jb4 22:23 Drug: NS 0.9% IV 1000 ml IV at 999 ml/hr Per protocol Route: IV; Rate: 999 ml/hr; Site: jb4 right antecubital; 23:04 Drug: Ciprofloxacin IVPB 200 mg 100 ml IVPB once over 60 mins Volume: 100 ml; Route: jb4 IVPB; Infused Over: 60 mins; Site: right antecubital; Disposition Summary: 06/14/23 22:35 Hospitalization Ordered Notes: Hospitalization Status: Observation cp Provider: Wili Chacko cp Location: Telemetry/MedSurg (observation)(06/14/23 22:35) cp Condition: Stable(06/14/23 22:35) cp Problem: new(06/14/23 22:35) cp Symptoms: have improved(06/14/23 22:35) cp Bed/Room Type: Standard cp Room Assignment: [facility](06/14/23 22:44) rv1 Diagnosis - Indeterminate colitis(06/14/23 22:35) cp - Other acute pancreatitis without necrosis or infection(06/14/23 22:36) cp Forms: - Medication Reconciliation Form cp - SBAR form cp - Leadership Thank You Letter cp Signatures: Dispatcher [employer] EDMS Marquise Edgar PA PA cp Celio Maldonado, RN RN jb4 Rose Marie Shah, RN RN mb9 Kathie Easton rv1 Seamus Mayfield, RN RN rs5 Corrections: (The following items were deleted from the chart) 19:08 18:48 Abdomen Pelvis Wo Con+CT.RAD.BRZ ordered. EDMS EDMS 22:04 21:15 Home cp cp 22:04 21:15 new cp cp 22:04 21:15 have improved cp cp 22:04 21:15 Stable cp cp 22:04 21:15 Indeterminate colitis cp cp 22:04 21:15 Diarrhea, unspecified cp cp 22:04 21:15 Other acute pancreatitis without necrosis or infection cp cp 22:44 22:35 cp rv1 06/14 19:12 06/13 16:35 Constitutional: Negative for cp cp
[2023-06-14] MEDS ORDERED: ONDANSETRON 4 MG/2 ML VIAL IV PRN (22:35)
[2023-06-14] MEDS ORDERED: ACETAMINOPHEN 500 MG TAB PO PRN (22:35)
--- NOTE | 2023-06-14 22:41 | P.HP ---
Certification for Inpatient Patient admitted to: Inpatient With expected LOS: >2 Midnights Practitioner: I am a practitioner with admitting privileges, knowledge of patient current condition, hospital course, and medical plan of care. Services: Services provided to patient in accordance with Admission requirements found in Title 42 Section 412.3 of the Code of Federal Regulations Patient History Date of Service: 06/15/23 Reason for admission: Gastroenteritis, Suspected pancreatitis History of Present Illness: 47-year-old female patient with past medical history significant for history of ulcerative colitis for which she had proctocolectomy and J-pouch creation, history of previous pulmonary embolism, who came to ED with complaint of abdominal pain with diarrhea. She reported that she was having loose stools after she had proctocolectomy for complication of ulcerative colitis and continues to have abdominal pain. Pain was significant located in the mid abdominal region. No fever or chills. In the ED CT of the abdomen/pelvis done revealed inflammation in the intestine and she also has elevated lipase of 300. She was started on IV fluids, pain medication and was admitted for inpatient care. Allergies morphine Allergy (Verified 12/31/12 07:32) Itching Sulfa (Sulfonamide Antibiotics) Allergy (Verified 12/31/12 07:29) UNK Home Medications: Warfarin Sodium [Coumadin*] 4 mg PO DAILY 11/16/22 - Past Medical/Surgical History Diabetic: No -: Ulcerative Colitis sp proctocolectomy with J-pouch -: Hx [facility] (Dr. Mullins/ Dr. Solano) -: Hx PE on anticoagulation -: Proctocolectomy with J-Pouch -: removal of pulmonary embolism open chest, -: appendectomy - Family History Mother -: Cancer Notes: throat - Social History Alcohol use: No CD- Drugs: No Caffeine use: No Review of Systems General: Malaise Eyes: Unremarkable ENT: Unremarkable Respiratory: Unremarkable Cardiovascular: Unremarkable Gastrointestinal: Abdominal Pain, Diarrhea Genitourinary: Unremarkable Musculoskeletal: Unremarkable Integumentary: Unremarkable Neurological: Unremarkable Lymphatics: Unremarkable Physical Examination - Physical Exam General: Alert, Oriented x3 HEENT: Atraumatic Neck: Supple Respiratory: Normal air movement Cardiovascular: Regular rate/rhythm, Normal S1 S2 Gastrointestinal: Tenderness Musculoskeletal: No swelling Neurological: Normal speech, Normal strength at 5/5 x4 extr - Studies Laboratory Data (last 24 hrs) 06/14/23 06/14/23 06/14/23 17:42 17:42 17:42 WBC 8.50 Hgb 15.1 H Hct 44.8 Plt Count 562 H PT 26.8 H INR 2.50 APTT 40.4 H Sodium 130 L Potassium 4.3 BUN 13 Creatinine 1.79 H Glucose 111 H Magnesium 2.3 Total Bilirubin 0.9 AST 37 ALT 25 Alkaline Phosphatase 107 Lipase 365 H Assessment and Plan - Plan Abdominal plain/acute pancreatitis: Pain episode is concerning for possible pancreatitis with elevated lipase. We will continue pain control with Dilaudid, IV fluid with lactated Ringer's and follow symptomatology closely. Acute gastroenteritis: Concerns for gastroenteritis entertained. IV Flagyl to be continued for management. We will follow clinical symptomatology. Hyponatremia: Sodium is low at 130. Will continue isotonic fluid for repletion and follow levels on daily labs. Prophylaxis: Warfarin to be continued for anticoagulation for PE episode and also suffice for DVT prophylaxis. CODE STATUS: Full code Disposition: We will treat acute pancreatitis/gastroenteritis and she will be discharged once deemed clinically stable. - Advance Directives Does patient have a Living Will: No Does patient have a Durable POA for Healthcare: No
[2023-06-14] MEDS ORDERED: Ciprofloxacin 200mg IV 200 MG/100 ML IV.SOLN. IV ONE (22:51)
[2023-06-15] MEDS: Ringers Lactate 1,000 ML IV SCH (00:52)
[2023-06-15] MEDS: HYDROMORPHONE HCL 0.5 MG/0.5 ML INJ IV PRN (01:22)
[2023-06-15] MEDS: PROMETHAZINE INJ 25 MG/ML AMP IV PRN (01:22)
[2023-06-15 01:25] VITALS: O2SAT 100
[2023-06-15 01:54] VITALS: BMI 35.9
[2023-06-15 07:15] LABS: Absolute Basophils 0.1 K/uL (0-0.5); Absolute Eosinophils 0.1 K/uL (0-0.5); Absolute Lymphocytes (CBC) 1.1 K/uL (0.7-4.9); Absolute Monocytes 1.1 K/uL (0.1-1.3); Basophils % 1.1 % (0-1.3); Eosinophils % 1.4 % (0-4.4); Hematocrit 37.4 % (36.0-45.0); Lymphocytes % 14.7 % (15.3-44.8); MCH 29.6 pg (27.0-35.0); MCHC 34.9 g/dL (32.0-36.0); MCV 85.1 fL (80-100); MPV 6.7 fL (7.6-11.3); Monocytes % 15.3 % (3.3-12.3); Neutrophils % 67.5 % (41.7-73.7); Nucleated Red Blood Cells % 0.1 % (0-0); Platelets 473 thou/uL (152-406); RBC Red Blood Cell Count 4.39 M/uL (3.86-4.86); Red Cell Distribution Width 14.1 % (12.1-15.2)
[2023-06-15 07:38] LABS: Albumin 2.9 g/dL (3.4-5.0); Albumin/Globulin Ratio 0.7 (1.1-1.8); Anion Gap 11.4 mEq/L (5.0-15.0); Bilirubin Total 0.8 mg/dL (0.2-1.0); Globulin 4.3 g/dL (2.3-3.5); Magnesium 2.1 mg/dL (1.6-2.4); Potassium 3.4 mEq/L (3.5-5.1); Protein, Total 7.2 g/dL (6.4-8.2)
[2023-06-15] MEDS: ENOXAPARIN 40 MG/0.4 ML SQ SCH (09:00)
[2023-06-15] MEDS: METRONIDAZOLE 500mg IVPB 500 MG/100 ML BAG IV SCH (09:00)
[2023-06-15] MEDS: PIPER TAZO 3.375 GM in NA CHLORIDE 0.9% 100 ML IV SCH (09:22)
[2023-06-15] MEDS: KCL 20 MEQ/100 mL IVPB 20 MEQ/100 ML BAG IV SCH ×2 (09:39→14:20)
[2023-06-16] MEDS ORDERED: POTASSIUM CL SA 10 MEQ TAB PO ONE (09:00)
[2023-06-16 09:37] LABS: Anion Gap 8.7 mEq/L (5.0-15.0); Potassium 3.7 mEq/L (3.5-5.1)
[2023-06-16 09:52] VITALS: BP 114/66; TEMP 97
[2023-06-16 12:59] LABS: C.diff Antigen/Toxin Ag neg : Tox neg (NEG : NEG); CDIFF INTERNAL NEG CONTROL White Background (WHITE BKGD); STOOL CONSISTENCY Liquid/Semi-Solid
[2023-06-16] MEDS ORDERED: WARFARIN SODIUM 4 MG TAB PO SCH (17:00)
--- NOTE | 2023-06-18 14:29 | EKG ---
Test Date: 2023-06-14 Test Time: 17:44:47 Patch Sander: EDUARD MEASUREMENT RESULTS: Intervals: Rate: 109 WI: 184 QRSD: 72 QT: 330 QTc: 444 [place]: P: 33 WI: 184 QRS: 46 T: -83 INTERPRETIVE STATEMENTS: Sinus tachycardia T wave abnormality, consider inferior ischemia T wave abnormality, consider anterolateral ischemia Abnormal ECG Compared to ECG 11/15/2022 16:09:13 Possible ischemia now present T-wave abnormality still present Electronically Signed On 06-18-23 14:17:34 CDT by Sam Burdick
== END 2023-06-16 11:00 | disposition home or self-care (01) ==
LOC: ER 16:06 → ERHOLD 22:35 → 4TH 23:39
PROVIDERS: ADMIT Internal Medicine Nephrology; ATTEND Hospitalist
DX: K52.9 Noninfective gastroenteritis and colitis, unspecified (principal); E87.1 Hypo-osmolality and hyponatremia; Z88.5 Allergy status to narcotic agent; Z88.2 Allergy status to sulfonamides; Z90.49 Acquired absence of other specified parts of digestive tract
CPT/HCPCS: 93005; 87045; 85025 ×2; 80048 ×2; 36415 ×2; 83735 ×2; 89055; 85610; 80061; 80076; 87046; 85730; 87324; 84484; 83690 ×2; 80053; 83880; 74176; 71045; 96372; 99285; J2550 ×4; J3480 ×2; J2765; J0500; J2543 ×4; J3010 ×2; J0744; J1170; J2405 ×2; J7120 ×3; G0378; J1650